=== PATIENT | female | born 1960 | race Caucasian/White ===

== ENCOUNTER → 2022-04-04 13:53 | Outpatient (BNVA) | payer OTHER, SELFPAY | PROVIDERS: PCP Family Medicine; Visit Provider Psychiatry & Neurology Psychiatry | DX: F32.A Depression, unspecified (principal) ==

== ENCOUNTER → 2022-05-23 14:26 | Outpatient (BNVA) | payer OTHER, SELFPAY | PROVIDERS: PCP Family Medicine; Visit Provider Psychiatry & Neurology Psychiatry | DX: Z13.89 Encounter for screening for other disorder (principal) ==

== ENCOUNTER → 2022-07-25 14:05 | Outpatient (BNVA) | payer OTHER, SELFPAY | PROVIDERS: PCP Family Medicine; Visit Provider Psychiatry & Neurology Psychiatry ==

== ENCOUNTER → 2022-08-15 11:42 | Outpatient (BNVA) | payer OTHER, SELFPAY | PROVIDERS: PCP Family Medicine; Visit Provider Psychiatry & Neurology Psychiatry ==

== ENCOUNTER 2022-10-17 11:04 | Outpatient (AMB) | payer OTHER, SELFPAY ==
--- NOTE | 2022-10-17 11:16 | A.OFFPSYCH_ITS ---
Intake Intake Visit Reasons: depression Allergies levofloxacin [From Levaquin] Allergy (Verified 05/23/22 14:48) Rash Medication List - Last Reconciled 10/17/22 by Brandin Chanel MD albuterol sulfate 2.5 mg inhalation Q6H PRN bupropion HCl 150 mg PO DAILY clonazepam 0.5 mg PO TID PRN guanfacine ER 2 mg PO DAILY lamotrigine 200 mg PO BID levothyroxine 100 mcg PO DAILY montelukast 10 mg PO DAILY olanzapine 2.5 mg PO DAILY PRN pantoprazole 40 mg PO DAILY HPI- Psychiatric Chief Complaint: depression HPI Narrative: Pt has been doing somewhat better less depressed less anxious working with Darwin Watt phd will be going on trip to [place] with her using klonapin 0.5 am Lamictal 200 mg twice a day Wellbutrin 150 mg daily olanzapine 2.5 mg daily p.r.n. which she has only need to use once or twice since her last visit she has only been taking the 0.5 mg of Klonopin in the morning. 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 She has been managing better regarding these feelings no significant manic or depressive episode noted by the patient currently. Guanfacine extended-release 2 mg daily in the morning has also been quite helpful in managing anxiety and reactivity Past Psychiatric History: History of agitated depression cycling mood disorder tends to do worse in the spring was at the [facility] in the past was in counseling with Dr. Darwin Watt for many years clinical psychologist Mental Status Exam Mental Status Exam Narrative: Mental Status Exam Narrative: Appearance: Casually dressed Behavior: Cooperative appropriate psychomotor: Within normal limits Speech: Normal volume and prosody Thought proccess logical and goal-directed Thought content: Future oriented has some degree of anxiety rumination regarding her 's upcoming trip and psychiatric issues with her grandson Mood: Some anxiety mood described as okay Affect: Appropriate to mood full affect SI:denies HI:denies VH/AH:none Delusions: None Insight/judgment: Good insight and judgment better perspective Memory/cog: Intact Assessment and Plan Assessment & Plan (1) Generalized anxiety disorder: Status: Acute Code(s): F41.1 - Generalized anxiety disorder (2) Bipolar II disorder: Status: Acute Code(s): F31.81 - Bipolar II disorder (3) ADHD: Status: Acute Code(s): F90.9 - Attention-deficit hyperactivity disorder, unspecified type Plan Patient has been much more stable has better coping mechanisms and strategies in perspective in dealing with issues related to the gradually deteriorating physical condition of her is dealing with Parkinson's. She is going on a trip to [place] with family and her has some appropriate anxiety regarding this. She is working regularly with Dr. Darwin Watt clinical psychologist and this has been quite helpful She has continued to be sober guanfacine has been quite helpful Wellbutrin has been decreased to 150 mg secondary to agitation and anxiety this was done previously Medications: Refilled bupropion HCl 150 mg PO DAILY 30 tabs 2RF guanfacine ER 2 mg PO DAILY 30 tabs 2RF lamotrigine 200 mg PO BID 60 tabs 2RF Discontinued montelukast Discontinued Reason: Patient no longer taking 10 mg PO DAILY Counseling and coordination of Care Pt. Self Management counseling: Breathing and General coping skills Details-Self Mgmt counseling: Issues related to self management and around condition of her and upcoming trip to [place] which will also be with other family Medication management counseling: Effectiveness, Side effects and Dosing range Diagnosis and Prognosis Counseling: Impact of diagnosis on life functions and Adequacy of current interventions Details: I spent [38] minutes reviewing the record, seeing the patient and documenting in the medical record. Counseling provided to the patient/caregiver as outlined below. Addressed patient/caregiver concerns regarding current medication regime including effective adherence. Addressed patient/caregiver concerns regarding diagnosis and prognosis including accuracy of diagnosis, prognosis over time, impact of diagnosis. Addressed patient/caregiver concerns regarding impact of recent stressors. [facility] Medical History (Updated 05/23/22 @ 15:07 by Brandin Chanel MD) ADHD Asthma Bipolar II disorder Generalized anxiety disorder Hypothyroid Social History: Family history of psychosis ADD The patient is has 2 children her daughter has ADHD as does her grandson patient did work in [email or web address] for many years at a long term is retired as is her he has developed Parkinson's over the past couple years has become much more dependent on her patient has a history of chronic anxiety Patient lives with her she enjoys raising dogs Substance History: History of alcohol abuse Trauma History: Has worked with [employer] patient is in a residence times many years Coding Level of Care Code Est Pt Level 3 (72728) Therapy 30m w/E&M (78442) Diagnoses Generalized anxiety disorder F41.1 Bipolar II disorder F31.81 ADHD F90.9
== END 2022-10-17 15:46 | disposition home or self-care (01) ==
LOC: HO.HOP 11:04
PROVIDERS: PCP Family Medicine; Visit Provider Psychiatry & Neurology Psychiatry
DX: F41.1 Generalized anxiety disorder (principal); F31.81 Bipolar II disorder; F90.9 Attention-deficit hyperactivity disorder, unspecified type
CPT/HCPCS: 90833; 99213

== ENCOUNTER → 2022-10-17 11:04 | Outpatient (BNVA) | payer OTHER, SELFPAY | PROVIDERS: PCP Family Medicine; Visit Provider Psychiatry & Neurology Psychiatry | DX: F90.9 Attention-deficit hyperactivity disorder, unspecified type (principal); F41.1 Generalized anxiety disorder; F31.81 Bipolar II disorder | CPT/HCPCS: 90833; 99212 ==

== ENCOUNTER 2023-02-03 11:21 | Outpatient (AMB) | payer OTHER, SELFPAY ==
--- NOTE | 2023-02-03 12:46 | A.OFFPSYCH_ITS ---
Intake Intake Visit Reasons: Depression Allergies levofloxacin [From Levaquin] Allergy (Verified 05/23/22 14:48) Rash Medication List - Last Reconciled 02/03/23 by Brandin Chanel MD albuterol sulfate 2.5 mg inhalation Q6H PRN bupropion HCl 150 mg PO DAILY clonazepam 0.5 mg PO TID PRN guanfacine ER 3 mg PO DAILY lamotrigine 200 mg PO BID levothyroxine 100 mcg PO DAILY olanzapine 2.5 mg PO DAILY PRN pantoprazole 40 mg PO DAILY HPI- Psychiatric Chief Complaint: Depression HPI Narrative: Patient when on [place] trip with her things generally went okay continues to have periods of marked anxiety particularly around her who often reminds her disabled people she used to work with periods of dysphoria severe anxiety she continues to work with Dr. Darwin Watt she remains sober Past Psychiatric History: History of agitated depression cycling mood disorder tends to do worse in the spring was at the [facility] in the past was in counseling with Dr. Darwin Watt for many years clinical psychologist Mental Status Exam Mental Status Exam Narrative: Mental Status Exam Narrative: Appearance: Casually dressed Behavior: Cooperative appropriate psychomotor: Within normal limits Speech: Normal volume and prosody Thought proccess logical and goal-directed Thought content: Future oriented has some degree of anxiety rumination regarding her 's upcoming trip and psychiatric issues with her grandson Mood: Some anxiety mood described as okay Affect: Appropriate to mood full affect SI:denies HI:denies VH/AH:none Delusions: None Insight/judgment: Good insight and judgment better perspective Memory/cog: Intact Assessment and Plan Assessment & Plan (1) ADHD: Status: Acute Code(s): F90.9 - Attention-deficit hyperactivity disorder, unspecified type (2) Generalized anxiety disorder: Status: Acute Code(s): F41.1 - Generalized anxiety disorder (3) Bipolar II disorder: Status: Acute Code(s): F31.81 - Bipolar II disorder Plan Given patient's severe anxiety increase guanfacine to 3 mg daily encourage daily walks yoga relaxation stress management meditation Medications: New guanfacine ER 3 mg PO DAILY 30 tabs 2RF Discontinued guanfacine ER Discontinued Reason: Doctor's Order 2 mg PO DAILY 30 tabs 2RF Counseling and coordination of Care Pt. Self Management counseling: Breathing, Exercise and Cognitive restructuring Diagnosis and Prognosis Counseling: Problematic behaviors secondary to diagnosis and Adequacy of current interventions Details: I spent [38] minutes reviewing the record, seeing the patient and documenting in the medical record. Counseling provided to the patient/caregiver as outlined below. Addressed patient/caregiver concerns regarding current medication regime including effective adherence. Addressed patient/caregiver concerns regarding diagnosis and prognosis including accuracy of diagnosis, prognosis over time, impact of diagnosis. Addressed patient/caregiver concerns regarding impact of recent stressors. 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
== END 2023-02-03 12:28 | disposition home or self-care (01) ==
LOC: HO.HOP 11:21
PROVIDERS: PCP Family Medicine; Visit Provider Psychiatry & Neurology Psychiatry
DX: F90.9 Attention-deficit hyperactivity disorder, unspecified type (principal); F41.1 Generalized anxiety disorder; F31.81 Bipolar II disorder
CPT/HCPCS: 90833; 99213

== ENCOUNTER → 2023-02-03 11:21 | Outpatient (BNVA) | payer OTHER, SELFPAY | PROVIDERS: PCP Family Medicine; Visit Provider Psychiatry & Neurology Psychiatry | DX: F41.1 Generalized anxiety disorder (principal); F31.81 Bipolar II disorder; F90.9 Attention-deficit hyperactivity disorder, unspecified type | CPT/HCPCS: 90833; 99212 ==

== ENCOUNTER 2023-05-09 11:30 | Outpatient (AMB) | payer OTHER, SELFPAY ==
--- NOTE | 2023-05-09 11:40 | MHC.OFFVISPS ---
Intake Intake Visit Reasons: depression Allergies levofloxacin [From Levaquin] Allergy (Verified 05/23/22 14:48) Rash HPI- Psychiatric Chief Complaint: depression HPI Narrative: Patient seen psychiatric follow-up. Patient has been anxious ruminating dysphoric overwhelmed with the situation at home dealing with her and recently with her grandson who appears to have schizophrenia when off of his medication had become threatening. He is now hospitalized patient feels guanfacine generally helpful she is aware of blood pressure risk of lowering and dizziness need to get up slowly out of a chair Past Psychiatric History: History of agitated depression cycling mood disorder tends to do worse in the spring was at the [facility] in the past was in counseling with Dr. Darwin Watt for many years clinical psychologist Assessment and Plan Assessment & Plan (1) Generalized anxiety disorder: Status: Acute Code(s): F41.1 - Generalized anxiety disorder (2) Bipolar II disorder: Status: Acute Code(s): F31.81 - Bipolar II disorder (3) ADHD: Status: Acute Code(s): F90.9 - Attention-deficit hyperactivity disorder, unspecified type Plan Wellbutrin has been lowered over times 150 mg clonazepam secondary to severe panic and anxiety 0.5 t.i.d. lamotrigine 200 mg b.i.d.. Consider discontinuation Wellbutrin. Consider mirtazapine patient worried about weight gain has been on olanzapine past suggest consideration Myrna Galarza patient did wish at this time.sees dr watt in [place] encourage daily walks exercise Medications: Refilled clonazepam 0.5 mg PO TID PRN 90 tabs 0RF anxiety bupropion HCl 150 mg PO DAILY 30 tabs 2RF lamotrigine 200 mg PO BID 60 tabs 2RF Counseling and coordination of Care Pt. Self Management counseling: Breathing, Exercise and Greif counseling Medication management counseling: Effectiveness and Side effects Diagnosis and Prognosis Counseling: Impact of diagnosis on life functions and Adequacy of current interventions Details: I spent [30] minutes reviewing the record, seeing the patient and documenting in the medical record. Counseling provided to the patient/caregiver as outlined below. Addressed patient/caregiver concerns regarding current medication regime including effective adherence. Addressed patient/caregiver concerns regarding diagnosis and prognosis including accuracy of diagnosis, prognosis over time, impact of diagnosis. Addressed patient/caregiver concerns regarding impact of recent stressors. 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
== END 2023-05-09 11:54 | disposition home or self-care (01) ==
LOC: HO.HOP 11:30
PROVIDERS: PCP Family Medicine; Visit Provider Psychiatry & Neurology Psychiatry
DX: F41.1 Generalized anxiety disorder (principal); F31.81 Bipolar II disorder; F90.9 Attention-deficit hyperactivity disorder, unspecified type
CPT/HCPCS: 99214

== ENCOUNTER → 2023-05-09 11:30 | Outpatient (BNVA) | payer OTHER, SELFPAY | PROVIDERS: PCP Family Medicine; Visit Provider Psychiatry & Neurology Psychiatry | DX: F41.1 Generalized anxiety disorder (principal); F31.81 Bipolar II disorder; F90.9 Attention-deficit hyperactivity disorder, unspecified type | CPT/HCPCS: 99212 ==

== ENCOUNTER 2023-09-11 11:14 | Outpatient (AMB) | payer OTHER, SELFPAY ==
--- NOTE | 2023-09-11 11:15 | A.OFFPSYCH_ITS ---
Intake Intake Visit Reasons: depression Allergies levofloxacin [From Levaquin] Allergy (Verified 05/23/22 14:48) Rash Medication List - Last Reconciled 09/11/23 by Brandin Chanel MD albuterol sulfate 2.5 mg inhalation Q6H PRN clonazepam 0.5 mg PO TID PRN guanfacine ER 2 mg PO DAILY lamotrigine 200 mg PO BID levothyroxine 100 mcg PO DAILY olanzapine 2.5 mg PO DAILY PRN pantoprazole 40 mg PO DAILY HPI- Psychiatric Chief Complaint: depression HPI Narrative: Patient has difficulty with chronic anxiety and dysphoria in relationship to her and chronic stress. There has been some improvement her son and [id number] have moved in essentially to support the patient taking care of her who has Parkinson's disease. Patient continues on Lamictal which has been quite helpful clonazepam no more than 1 mg daily which continues to be helpful generally 0.5 mg a day guanfacine which has been quite helpful for anxiety reactivity Past Psychiatric History: History of agitated depression cycling mood disorder tends to do worse in the spring was at the [facility] in the past was in counseling with Dr. Darwin Watt for many years clinical psychologist Assessment and Plan Assessment & Plan (1) Generalized anxiety disorder: Status: Acute Code(s): F41.1 - Generalized anxiety disorder (2) Bipolar II disorder: Status: Acute Code(s): F31.81 - Bipolar II disorder Plan Continue guanfacine Wellbutrin 150 discontinued may contribute to anxiety reactivity guanfacine lowered to 2 mg daily secondary to occasional lightheadedness blood pressure unremarkable on exam Medications: New guanfacine ER 2 mg PO DAILY 90 tabs 1RF Discontinued guanfacine ER Discontinued Reason: Duplicate 3 mg PO DAILY 30 tabs 2RF bupropion HCl SR Discontinued Reason: Doctor's Order 150 mg PO DAILY 30 tabs 2RF Counseling and coordination of Care Details: I spent [] minutes reviewing the record, seeing the patient and documenting in the medical record. Counseling provided to the patient/caregiver as outlined below. Addressed patient/caregiver concerns regarding current medication regime including effective adherence. Addressed patient/caregiver concerns regarding diagnosis and prognosis including accuracy of diagnosis, prognosis over time, impact of diagnosis. Addressed patient/caregiver concerns regarding impact of recent stressors. [facility] Medical History (Updated 05/23/22 @ 15:07 by Brandin Chanel MD) Asthma ADHD Generalized anxiety disorder Bipolar II disorder Hypothyroid Social History: Family history of psychosis ADD The patient is has 2 children her daughter has ADHD as does her grandson patient did work in [employer] for many years at a retirement is retired as is her he has developed Parkinson's over the past couple years has become much more dependent on her patient has a history of chronic anxiety Patient lives with her she enjoys raising dogs Substance History: History of alcohol abuse Trauma History: Has worked with [employer] patient is in a residence times many years Coding Level of Care Code Est Pt Level 4 (93331) Diagnoses Generalized anxiety disorder F41.1 Bipolar II disorder F31.81
== END 2023-09-11 11:22 | disposition home or self-care (01) ==
LOC: HO.HOP 11:14
PROVIDERS: PCP Family Medicine; Visit Provider Psychiatry & Neurology Psychiatry
DX: F41.1 Generalized anxiety disorder (principal); F31.81 Bipolar II disorder
CPT/HCPCS: 99214

== ENCOUNTER → 2023-09-11 11:14 | Outpatient (BNVA) | payer OTHER, SELFPAY | PROVIDERS: PCP Family Medicine; Visit Provider Psychiatry & Neurology Psychiatry | DX: F41.1 Generalized anxiety disorder (principal); F31.81 Bipolar II disorder | CPT/HCPCS: 99212 ==

== ENCOUNTER 2023-11-27 10:57 | Outpatient (AMB) | payer OTHER, SELFPAY ==
--- NOTE | 2023-11-27 11:33 | A.OFFPSYCH_ITS ---
Intake Intake Visit Reasons: depression Allergies levofloxacin [From Levaquin] Allergy (Verified 05/23/22 14:48) Rash HPI- Psychiatric Chief Complaint: depression HPI Narrative: Pt seen in f/u has been stressed overwhelmed had to euthanize dog recently which inc depression has been isolating . HER LONGSTANDING THERAPIST DR. WATT WILL BE RETIRING. No self-harming thoughts but feels overwhelmed with multiple issues with her family grandson a chronic psychotic disorder who has been refusing medication her has Parkinson's and has been increasingly disabled. Patient is on guanfacine Lamictal which generally has been helpful has not used olanzapine p.r.n. patient does tend to do worse in the spring. Her son his have moved in to help the patient take care of her this has been helpful. She has not been doing the things she knows she needs to be doing to help stabilize such as daily walk making sure she has time for herself besides isolating Past Psychiatric History: History of agitated depression cycling mood disorder tends to do worse in the spring was at the [facility] in the past was in counseling with Dr. Darwin Watt for many years clinical psychologist Mental Status Exam Mental Status Exam Narrative: Mental Status Exam Narrative: Appearance: Casually dressed Behavior: Cooperative appropriate psychomotor: Within normal limits Speech: Normal volume and prosody Thought proccess logical and goal-directed Thought content: Lot of negative thinking rumination self despair judgment that she is not doing the things she knows she needs to do. Quite worried about her grandson and what he might do Mood: Depressed anxious Affect: Appropriate to mood full affect SI:denies HI:denies VH/AH:none Delusions: None Insight/judgment: Some impaired judgment regarding self-care overwhelmed with multiple issues difficulty setting boundaries urge ongoing counseling yoga meditation excised Memory/cog: Intact Assessment and Plan Assessment & Plan (1) Bipolar II disorder: Status: Acute Code(s): F31.81 - Bipolar II disorder (2) ADHD: Status: Acute Code(s): F90.9 - Attention-deficit hyperactivity disorder, unspecified type (3) Generalized anxiety disorder: Status: Acute Code(s): F41.1 - Generalized anxiety disorder Plan Had recommended l methyl folate 7.5 mg up to 15 mg monitor for any increased anxiety continue lamotrigine guanfacine consider Vraylar Latuda if continued symptomatic strongly urged regular exercise meditation boundary setting with family Medications: Refilled lamotrigine 200 mg PO BID 180 tabs 1RF guanfacine ER 2 mg PO DAILY 90 tabs 1RF Counseling and coordination of Care Pt. Self Management counseling: Breathing Details-Self Mgmt counseling: Issues related to management of multiple family stressors Medication management counseling: Effectiveness, Side effects and Dosing range Diagnosis and Prognosis Counseling: Adequacy of current interventions Details: I spent [40] minutes reviewing the record, seeing the patient and documenting in the medical record. Counseling provided to the patient/caregiver as outlined below. Addressed patient/caregiver concerns regarding current medication regime including effective adherence. Addressed patient/caregiver concerns regarding diagnosis and prognosis including accuracy of diagnosis, prognosis over time, impact of diagnosis. Addressed patient/caregiver concerns regarding impact of recent stressors. 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
== END 2023-11-27 11:41 | disposition home or self-care (01) ==
LOC: HO.HOP 10:57
PROVIDERS: PCP Family Medicine; Visit Provider Psychiatry & Neurology Psychiatry
DX: F31.81 Bipolar II disorder (principal); F90.9 Attention-deficit hyperactivity disorder, unspecified type; F41.1 Generalized anxiety disorder
CPT/HCPCS: 90833; 99213

== ENCOUNTER → 2023-11-27 10:57 | Outpatient (BNVA) | payer OTHER, SELFPAY | PROVIDERS: PCP Family Medicine; Visit Provider Psychiatry & Neurology Psychiatry ==

== ENCOUNTER 2024-04-19 11:09 | Outpatient (AMB) | payer OTHER, SELFPAY ==
--- NOTE | 2024-04-19 11:52 | A.OFFPSYCH_ITS ---
Intake Intake Visit Reasons: depression Allergies levofloxacin [From Levaquin] Allergy (Verified 05/23/22 14:48) Rash Medication List - Last Reconciled 04/19/24 by Brandin Chanel MD albuterol sulfate 2.5 mg inhalation Q6H PRN clonazepam 0.5 mg PO TID PRN guanfacine ER 2 mg PO DAILY lamotrigine 200 mg PO BID levothyroxine 100 mcg PO DAILY olanzapine 2.5 mg PO DAILY PRN pantoprazole 40 mg PO DAILY HPI- Psychiatric Chief Complaint: depression HPI Narrative: Pt seen in psych f/u has been less anxious since son has moved in to some degree. Trying to figure out how to get along with son and d in law . Son has been helpful taking care of her h who has parkinsons. Lamictal guanfacine has been helpful . Has been having panic attacks at times and during exercise. There is a chronic low-level apathy and dysphoria some of it related to a lack connection with her at this point who has been disabled by Parkinson's disease. Has limited outside interests. Was seeing Dr. Watt who has now retired in psychotherapy Past Psychiatric History: History of agitated depression cycling mood disorder tends to do worse in the spring was at the [facility] in the past was in counseling with Dr. Darwin Watt for many years clinical psychologist Mental Status Exam Mental Status Exam Narrative: Mental Status Exam Narrative: Appearance: Casually dressed Behavior: Cooperative appropriate psychomotor: Within normal limits Speech: Normal volume and prosody Thought proccess logical and goal-directed Thought content: Focuses on family life issues related to herself her and grandson. Does not wish more aggressive treatment Mood: Depressed anxious Affect: Appropriate to mood full affect SI:denies HI:denies VH/AH:none Delusions: None Insight/judgment: Some impaired judgment regarding self-care which is a chronic issue for the patient was able to take in information Memory/cog: Intact Assessment and Plan Assessment & Plan (1) Bipolar II disorder: Status: Acute Code(s): F31.81 - Bipolar II disorder (2) Generalized anxiety disorder: Status: Acute Code(s): F41.1 - Generalized anxiety disorder (3) ADHD: Status: Acute Code(s): F90.9 - Attention-deficit hyperactivity disorder, unspecified type Plan urged pt to do self care 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 Has been having some inc panic attacks.L methyl folate 7.5 mg guanfacine lamictal can use klonapin for panic. If panic increase his can transiently take 0.5 b.i.d. for a few days before cutting back down to 0.5 mg daily in morning. Patient does not wish to take olanzapine which has been somewhat helpful in the past Medications: Changed From clonazepam 0.5 mg PO TID PRN 90 tabs 1RF anxiety To clonazepam 0.5 mg PO BID PRN 130 tabs 1RF anxiety 3 months Discontinued olanzapine Discontinued Reason: Patient Completed Course 2.5 mg PO DAILY PRN 30 tabs 2RF anxiety Counseling and coordination of Care Details: I spent [] minutes reviewing the record, seeing the patient and documenting in the medical record. Counseling provided to the patient/caregiver as outlined below. Addressed patient/caregiver concerns regarding current medication regime including effective adherence. Addressed patient/caregiver concerns regarding diagnosis and prognosis including accuracy of diagnosis, prognosis over time, impact of diagnosis. Addressed patient/caregiver concerns regarding impact of recent stressors. [facility] Medical History (Updated 05/23/22 @ 15:07 by Brandin Chanel MD) Asthma ADHD Generalized anxiety disorder Bipolar II disorder Hypothyroid Social History: Family history of psychosis ADD The patient is has 2 children her daughter has ADHD as does her grandson patient did work in [employer] for many years at a [employer] is retired as is her he has developed Parkinson's over the past couple years has become much more dependent on her patient has a history of chronic anxiety Patient lives with her she enjoys raising dogs Substance History: History of alcohol abuse Trauma History: Has worked with [employer] patient is in a residence times many years Coding Level of Care Code Est Pt Level 4 (25790) Diagnoses Bipolar II disorder F31.81 Generalized anxiety disorder F41.1 ADHD F90.9
--- OUTSIDE RECORDS SUMMARY | 2024-04-19 16:04 | XMS_ITS | Data Portability ---
Author Organization [facility], [facility] Address [address] [place] [address] Care Team Providers Care Government Program Manager Name Role Phone MACHO WHEELER Indoor Landscaper/Gardener Unavailable KRUNAL QUINTANA Indoor Landscaper/Gardener Unavailable Assessment Encounter Date Assessment Date Assessment LastModified by Organization Details LastModified Time 12/01/2013 12/01/2013 Pt. is doing well. She reports her knee is less painful and the fatigue is also getting less. slooze Not available 12/01/2013 09:56:01 12/06/2013 12/06/2013 Pt. continues to improve.? ? ? Her strength is better. Her knee fatigues quickly. slooze Not available 12/06/2013 08:22:30 12/09/2013 12/09/2013 Right knee is doing well. She continues to feel fatigue in the knee if she is up on it all day. slooze Not available 12/10/2013 06:25:37 12/21/2013 12/21/2013 Pt. is doing well and will be discharged today. slooze Not available 12/22/2013 06:20:25 Plan of Treatment Reminders Order Date Submit Date Provider Last Modified By Organization Details Last Modified Time Details Appointments None record ed. Lab None record ed. Referral None record ed. Procedures None record ed. Surgeries None record ed. Imaging None record ed. Medication Orders None record ed. Patient TargetsNo targets recorded. Patient InstructionsNo instructions recorded. Reason for Referral None Reported. Results Created Date Observation Date Name Description Value Unit Range Abnormal Flag Note LastModifiedBy Organization Detail LastModifiedTime 11/18/19 14 11/12/2013 imagi ng/di agnos tic resul t No observ ation record ed. BARCODE Not Available 2013 10:56:40 Result Notes None recorded. Problems Name Problem SNOMED Code Status Onset Date Resolution Date Notes Provider Name and Address Organization Details Recorded Time Carpal tunnel syndrome 10002680 Active 2004 Not Available [facility] 3 03:12:36 Traumatic injury 293980622 Completed 02/10/2013 Not Available [facility] 3 02:03:19 Problem Notes None recorded. Procedures Surgical History Date Name Laterality Status Provider Name and Address Organization Details Recorded Time 8 Carla - Colonoscopy completed Nilesh Aguirre MD [address] [place], [address], [facility] 01/21/2018 11:04:38 0 Treatment and Advice completed Flory Reyes PT [address] [place], [address], [facility] 07/04/2009 12:12:47 Imaging Results Imaging Date Name Status LastModified by Organiz ation Details LastModified Time 11/12/2013 imaging/diag nostic result completed BARCODE Information not available 11/17/2013 10:56:40 Procedure Notes None recorded. Medical Equipment None Reported. Allergies Allergen ID Allergen Name Allergen Category Reaction Reaction Severity Criticality Documentation Date Start Date Code Code System Note Provider Name and Address Organization Details Recorded Time 20780427 Paxil medicatio n Not available Not available Not available 01/21/2018 21560 8 RxNorm Alba Powell RN [facility], [facility] 8 09:27:54 [id number] Neurontin medicatio n Not available Not available Not available 01/21/2018 [address] [facility], [facility] 8 09:28:02 [id number] Levaquin medicatio n Not available Not available Not available 01/21/2018 09951 2 DESEAN Jerome, [facility] 8 10:10:00 Medications Name Sig Start Date Stop Date Status Note LastModified by Organization Details LastModified Time Breo Ellipta 200 mcg-25 mcg/dose powder for inhalation INHALE 1 PUFF ONCE A DAY active Not Available Not Available No t Available Vitals None Recorded Social History None recorded. Functional Status None recorded. Mental Status None recorded. Family History Nothing Reported. Medical History No medical history recorded. Gynecological HistoryNo gynecological history recorded. Obstetrics History GPAL:G 0 P 0 0 0 0 Past Encounters Encounter ID Performer Location Encounter Start Date Encounter Closed Date Diagnosis/Indication Diagnosis SNOMED-CT Code Diagnosis ICD10 Code Diagnosis Note [id number] Physical Therapy, [facility] [place] [address] 06/04/2004 11:36:42 06/04/2004 13:24:05 [id number] Physical Therapy, [facility] [place] [id number] 06/28/2009 11:14:12 06/29/2009 11:26:07 [id number] Radiology , [facility] [place] [address] 06/28/2009 12:19:38 06/29/2009 09:30:22 [id number] Physical Therapy, [facility] DEIRDRE Burris02[address] 1 07/04/2009 08:27:52 07/05/2009 11:12:19 [id number] Physical Therapy, [facility] DEIRDRE Burris02[address] 1 07/07/2009 08:28:12 07/10/2009 14:55:10 [id number] Physical Therapy, [facility] [place] [id number] 07/12/2009 09:28:58 07/13/2009 12:17:55 [id number] Physical Therapy, [facility] [place] [place] [address] 07/19/2009 10:22:07 07/20/2009 11:10:13 [id number] Physical Therapy, [facility] [place] [address] 07/26/2009 10:43:29 07/27/2009 12:35:56 [id number] Leslie Coker Physical Therapy, [facility] [place] [address] 12/11/2011 16:33:41 12/12/2011 08:57:25 [id number] eLslie Coker Physical Therapy, [facility] [place] [address] 12/13/2011 08:00:06 12/16/2011 09:31:23 [id number] Leslie Coker Physical Therapy, [address] [place] [address] 12/17/2011 15:54:23 12/18/2011 10:37:36 [id number] Leslie Coker Physical Therapy, [facility] [place] [address] 12/19/2011 15:53:28 12/20/2011 10:07:53 [id number] Leslie Coker Physical Therapy, [facility] [place] [address] 03/03/2012 16:47:01 03/04/2012 11:42:58 [id number] Leslie May Physical Therapy, [facility] [place] [address] 03/10/2012 14:21:47 03/11/2012 10:53:30 [id number] Olivia Rice Physical Therapy, [facility] [place] [id number] 02/04/2013 07:47:01 02/05/2013 09:12:45 Knee pain [id number] Olivia Kvng Physical Therapy, [facility] [place] [address] 02/12/2013 07:52:18 02/15/2013 11:25:06 Knee pain [id number] [id number] Olivia Calderon Physical Therapy, [facility] [place] [address] 02/16/2013 13:23:06 02/17/2013 08:21:50 Knee pain 80640136 [id number] Olivia Kvng Physical Therapy, [facility] [place] [address] 02/22/2013 08:23:54 02/23/2013 10:13:01 Knee pain 44112701 [id number] Olivia Kvng Physical Therapy, [facility] [place] [address] 02/24/2013 08:23:39 02/25/2013 12:22:01 Knee pain 24309913 [id number] Olivia Calderon Physical Therapy, [facility] [place] [address] 03/01/2013 07:53:50 03/02/2013 12:53:37 Knee pain 63071230 [id number] Olivia Calderon Physical Therapy, [facility] [place] [address] 03/04/2013 10:26:40 03/05/2013 10:20:02 Knee pain 95090786 [id number] Olivia Calderon Physical Therapy, [facility] [place] [address] 03/10/2013 14:14:03 03/11/2013 11:07:51 Knee pain [id number] [id number] Ole Wilson Physical Therapy, [facility] [place] [address] 03/12/2013 07:59:29 03/15/2013 09:52:58 Knee pain [id number] [id number] Vaibhav Buitrago Physical Therapy, [facility] [place] [address] 11/15/2013 08:47:00 11/16/2013 10:16:27 Knee pain 74668015 [id number] Vaibhav Buitrago Physical Therapy, [facility] [place] [address] 11/19/2013 09:19:13 11/23/2013 10:04:35 Knee pain 64560291 [id number] Vaibhav Buitrago Physical Therapy, [facility] [place] [address] 11/24/2013 16:31:32 11/25/2013 10:58:46 Knee pain 54323922 [id number] Vaibhav Buitrago Physical Therapy, [facility] [place] [address] 11/26/2013 09:21:40 11/29/2013 10:26:22 Knee pain 82229641 [id number] Vaibhav Buitrago Physical Therapy, [facility] [place] [address] 11/29/2013 08:49:17 11/30/2013 13:35:18 Knee pain 42852733 [id number] Vaibhav Buitrago Physical Therapy, [facility] [place] [address] 12/01/2013 09:24:10 12/01/2013 16:49:50 Knee pain 95199136 [id number] Vaibhav Buitrago Physical Therapy, [facility] [place] [address] 12/06/2013 07:52:20 12/06/2013 16:41:57 Knee pain 71340503 [id number] Vaibhav Buitrago Physical Therapy, [facility] [place] [address] 12/09/2013 15:21:47 12/10/2013 08:48:59 Knee pain 52708920 [id number] Vaibhav Buitrago Physical Therapy, [facility] [place] [address] 12/21/2013 15:18:50 12/22/2013 09:57:49 Knee pain [id number] [id number] Adriana Cantrell RN [facility], [address] [address] 01/21/2018 09:10:13 01/21/2018 14:05:03 [id number] Anat Goodrich [employer] electrical engineering draftsperson , [address] [address] 03/07/2023 12:21:17 03/10/2023 11:05:02 [id number] Kellie Rodriguez RN Endoscopy , [address] [address] 09/26/2023 09:43:36 09/30/2023 08:57:15 Health Concerns Section Related Observation LastModified by Organization Detai ls LastModified Time None Recorded Concern Status LastModified by Organization Details LastModified Time None Recorded Advance Directives Directive None Recorded Payers Encounter Date Sequence Insurance Name Policy Number Policy Raya Covered Member ID Raya Member ID Guarantor Name 12/01/2013 1 [facility] INDEMNITY PLAN - UNICARE [id number] Liliana Aiken [id number] Liliana Jones Attila 12/06/2013 [employer] [facility] [facility] Liliana Jones Attila 12/09/2013 [employer] [place] [facility] [employer] Liliana Jones Attila 12/21/2013 [employer] [facility] [employer] Liliana Jones Attila 01/21/2018 1 [facility] INDEMNITY PLAN - [employer] [id number] Liliana Jones Attila [id number] Liliana Jones Attila OBGyn Episode No OBEpisode recorded.
--- OUTSIDE RECORDS SUMMARY | 2024-04-19 16:04 | XMS_ITS | Data Portability ---
Author Organization [facility], Physical Therapy, [facility] Address [address] [place] [address] Care Team Providers Care Quiller Tender Name Role Phone MACHO WHEELER Antique Refinisher Unavailable KRUNAL QUINTANA Antique Refinisher Unavailable Assessment Encounter Date Assessment Date Assessment LastModified by Organization Details LastModified Time 12/01/2013 12/01/2013 Pt. is doing well. She reports her knee is less painful and the fatigue is also getting less. slooze Not available 12/01/2013 09:56:01 12/06/2013 12/06/2013 Pt. continues to improve.?? Her strength is better. Her knee fatigues [...] Available 2013 10:56:40 Result Notes None recorded. Procedures Surgical History Date Name Laterality Status Provider Name and Address Organization Details Recorded Time 4 Carla - EGD completed Nilesh Aguirre MD [address] [place] [address], [address], [facility] 09/26/2023 11:30:11 3 Carla - Colonoscopy completed Nilesh Aguirre MD [address] [place] [address], [address], [facility] 03/07/2023 13:44:25 Imaging Results Imaging Date Name Status LastModified by Organiz ation Details LastModified Time 11/12/2013 imaging/diag nostic result completed BARCODE Information not available 11/17/2013 10:56:40 Procedure Notes None recorded. Medical Equipment None Reported. Allergies Allergen ID Allergen Name Allergen Category Reaction Reaction Severity Criticality Documentation Date Start Date Code Code System Note Provider Name and Address Organization Details Recorded Time 599955 Paxil medicatio n other Not available Not available 03/05/2023 93452 8 RxNorm [facility]ici [facility] 16:06:37 285021 Prozac medicatio n other Not available Not available 03/05/2023 51395 RxNorm suici [facility]ra [facility]ur[facility] 16:07:06 993492 levofloxa alejandro medicatio n other Not available Not available 03/05/2023 06010 RxNorm red itchy site of injec [facility]ion [facility] 16:07:58 295561 Neurontin medicatio n hallucina tions Not available Not available 03/05/2023 69093 8 [facility] 16:08:29 Medications Name Sig Start Date Stop Date [...] SNOMED-CT Code Diagnosis ICD10 Code Diagnosis Note [id number] Physical Therapy, [facility] [place] [address] 06/04/2004 11:36:42 06/04/2004 13:24:05 [id number] Physical Therapy, [facility] [place] [id number] 06/28/2009 11:14:12 06/29/2009 11:26:07 [id number] Radiology , [facility] [place] [address] 06/28/2009 12:19:38 06/29/2009 09:30:22 [id number] Physical Therapy, [facility] DEIRDRE Burris02[address] 1 07/04/2009 08:27:52 07/05/2009 11:12:19 [id number] Physical Therapy, [address] DEIRDRE [id number] 1 07/07/2009 08:28:12 07/10/2009 14:55:10 [id number] Physical Therapy, [facility] [place] [address] 07/12/2009 09:28:58 07/13/2009 12:17:55 [id number] Physical Therapy, [facility] [place] [place] [address] 07/19/2009 10:22:07 07/20/2009 11:10:13 [id number] Physical Therapy, [address] [place] [address] 07/26/2009 10:43:29 07/27/2009 12:35:56 [id number] Leslie Coker Physical Therapy, [facility] [place] [address] 12/11/2011 16:33:41 12/12/2011 08:57:25 [id number] Leslie Coker Physical Therapy, [facility] [place] [address] 12/13/2011 08:00:06 12/16/2011 09:31:23 [id number] Leslie Coker Physical Therapy, [address] [place] [address] 12/17/2011 15:54:23 12/18/2011 10:37:36 [id number] Leslie Coker Physical Therapy, [facility] [place] [address] 12/19/2011 15:53:28 12/20/2011 10:07:53 [id number] Leslie Coker Physical Therapy, [facility] [place] [address] 03/03/2012 16:47:01 03/04/2012 11:42:58 [id number] Leslie Coker Physical Therapy, [facility] [place] [address] 03/10/2012 14:21:47 03/11/2012 10:53:30 [id number] Olivia Calderon Physical Therapy, [facility] [place] [address] 02/04/2013 07:47:01 02/05/2013 09:12:45 [id number] Olivia Calderon Physical Therapy, [facility] [place] [id number] 02/12/2013 07:52:18 02/15/2013 11:25:06 [id number] Olivia Calderon Physical Therapy, [facility] [place] [address] 02/16/2013 13:23:06 02/17/2013 08:21:50 [id number] Olivia Calderon Physical Therapy, [facility] [place] [address] 02/22/2013 08:23:54 02/23/2013 10:13:01 [id number] Olivia Calderon Physical Therapy, [facility] [place] [address] 02/24/2013 08:23:39 02/25/2013 12:22:01 [id number] Olivia Calderon Physical Therapy, [facility] [place] [address] 03/01/2013 07:53:50 03/02/2013 12:53:37 [id number] Olivia Calderon Physical Therapy, [facility] [place] [id number] 03/04/2013 10:26:40 03/05/2013 10:20:02 [id number] Olivia Calderon Physical Therapy, [facility] [place] [address] 03/10/2013 14:14:03 03/11/2013 11:07:51 [id number] Ole Wilson Physical Therapy, [place] [address] 03/12/2013 07:59:29 03/15/2013 09:52:58 [id number] Vaibhav Buitrago Physical Therapy, [facility] [place] [address] 11/15/2013 08:47:00 11/16/2013 10:16:27 [id number] Vaibhav Buitrago Physical Therapy, [facility] [place] [address] 11/19/2013 09:19:13 11/23/2013 10:04:35 [id number] Vaibhav Buitrago Physical Therapy, [facility] [place] [address] 11/24/2013 16:31:32 11/25/2013 10:58:46 [id number] Vaibhav Buitrago Physical Therapy, [facility] [place] [address] 11/26/2013 09:21:40 11/29/2013 10:26:22 [id number] Vaibhav Buitrago Physical Therapy, [facility] [place] [address] 11/29/2013 08:49:17 11/30/2013 13:35:18 [id number] Vaibhav Buitrago Physical Therapy, [facility] [place] [address] 12/01/2013 09:24:10 12/01/2013 16:49:50 [id number] Vaibhav Buitrago Physical Therapy, [facility] [place] [address] 12/06/2013 07:52:20 12/06/2013 16:41:57 [id number] Vaibhav Buitrago Physical Therapy, [facility] [place] [address] 12/09/2013 15:21:47 12/10/2013 08:48:59 [id number] Vaibhav Buitrago Physical Therapy, [facility] [place] [address] 12/21/2013 15:18:50 12/22/2013 09:57:49 [id number] Adriana Cantrell RN ASP, [facility] [place] [address] 01/21/2018 09:10:13 01/21/2018 14:05:03 [id number] NIKUNJ Holcomb RN Endoscopy , [facility] [place] [address] 03/07/2023 12:21:17 03/10/2023 11:05:02 [id number] Kellie Rodriguez RN Endoscopy , [address] [address] 09/26/2023 09:43:36 09/30/2023 08:57:15 Health Concerns Section Related Observation LastModified by Organization Detai ls LastModified Time None Recorded Concern Status LastModified by Organization Details LastModified Time None Recorded Advance Directives Directive None Recorded Payers Encounter Date Sequence Insurance Name Policy Number Policy Raya Covered Member ID Raya Member ID Guarantor Name 12/01/2013 1 [facility] INDEMNITY PLAN - [employer] [id number] Liliana S Attila [id number] Liliana Aiken 12/06/2013 [facility] [facility] [facility] [employer] Liliana Karen Attila 12/09/2013 [facility] [facility] [employer] Liliana S Attila 12/21/2013 [employer] [employer] [facility] [employer] Liliana S Attila 01/21/2018 1 [facility] INDEMNITY PLAN - [employer] [id number] Liliana Aiken [id number] Liliana Karen Attila OBGyn Episode No OBEpisode recorded.
== END 2024-04-19 12:13 | disposition home or self-care (01) ==
LOC: HO.HOP 11:09
PROVIDERS: PCP Family Medicine; Visit Provider Psychiatry & Neurology Psychiatry
DX: F31.81 Bipolar II disorder (principal); F41.1 Generalized anxiety disorder; F90.9 Attention-deficit hyperactivity disorder, unspecified type
CPT/HCPCS: 99214

== ENCOUNTER → 2024-04-19 11:09 | Outpatient (BNVA) | payer OTHER, SELFPAY | PROVIDERS: PCP Family Medicine; Visit Provider Psychiatry & Neurology Psychiatry | DX: F31.81 Bipolar II disorder (principal); F41.1 Generalized anxiety disorder; F90.9 Attention-deficit hyperactivity disorder, unspecified type | CPT/HCPCS: 99212 ==

== ENCOUNTER 2024-12-07 10:59 | Outpatient (AMB) | payer OTHER, SELFPAY ==
--- NOTE | 2024-12-07 11:50 | MHC.OFFVISPS ---
Intake Intake Visit Reasons: depression Allergies levofloxacin (From [facility]) Allergy (Verified 05/23/22 14:48) Rash Medication List - Last Reconciled 12/07/24 by Brandin Chanel MD albuterol sulfate 2.5 mg inhalation Q6H PRN clonazepam 0.5 mg PO BID PRN 3 months guanfacine ER 2 mg PO DAILY lamotrigine 200 mg PO BID levothyroxine 100 mcg PO DAILY pantoprazole 40 mg PO DAILY spironolactone 25 mg PO DAILY HPI- Psychiatric Chief Complaint: depression HPI Narrative: Patient seen psychiatric follow-up. Patient's mood has been more anxious and stressed she and her son and rlhhhzxk-sw-vak are being forced to move out of the house where they had been living generally run free for a number of years. She does find quite stressful staying with her caring for him watching him deteriorate and has been quite supported by having 1 of her sons living with her to help care for him. There being suddenly forced moved does bring up number of issues the patient has had a very difficult time dealing with her emotions toward her and has not felt connected for an extended period of time . Patient states she remains sober she continues on Lamictal and guanfacine combinations been helpful for anxiety reactivity mood stability. Patient obviously is under great deal of stress with multiple choices Past Psychiatric History: History of agitated depression cycling mood disorder tends to do worse in the spring was at the [facility] in the past was in counseling with Dr. Darwin Watt for many years clinical psychologist Mental Status Exam Mental Status Exam Narrative: Patient casually dressed somewhat disheveled anxious in appearance. Speech somewhat pressured. Thinking generally logical At times overwhelmed and tangential. Mood anxious stressed overwhelmed somewhat labile future oriented no self-harm no psychosis Assessment and Plan Assessment & Plan (1) Bipolar II disorder: Status: Acute Code(s): F31.81 - Bipolar II disorder (2) Generalized anxiety disorder: Status: Acute Code(s): F41.1 - Generalized anxiety disorder (3) ADHD: Status: Acute Code(s): F90.9 - Attention-deficit hyperactivity disorder, unspecified type Plan Continue guanfacine in clonazepam trying to tell patient's sort out different choices. She does have family support feels like she is dealing with the current stress and will sort it out Medications: Refilled guanfacine ER 2 mg PO DAILY 90 tabs 1RF clonazepam 0.5 mg PO BID PRN 130 tabs 1RF anxiety 3 months Counseling and coordination of Care Pt. Self Management counseling: General coping skills Medication management counseling: Effectiveness, Side effects and Dosing range Diagnosis and Prognosis Counseling: Impact of diagnosis on life functions and Adequacy of current interventions Details: I spent [38] minutes reviewing the record, seeing the patient and documenting in the medical record. Counseling provided to the patient/caregiver as outlined below. Addressed patient/caregiver concerns regarding current medication regime including effective adherence. Addressed patient/caregiver concerns regarding diagnosis and prognosis including accuracy of diagnosis, prognosis over time, impact of diagnosis. Addressed patient/caregiver concerns regarding impact of recent stressors. [facility] Medical History (Updated 05/23/22 @ 15:07 by Brandin Chanel MD) Asthma ADHD Generalized anxiety disorder Bipolar II disorder Hypothyroid Social History: Family history of psychosis ADD The patient is has 2 children her daughter has ADHD as does her grandson patient did work in [employer] for many years at a [employer] is retired as is her he has developed Parkinson's over the past couple years has become much more dependent on her patient has a history of chronic anxiety Patient lives with her she enjoys raising dogs Substance History: History of alcohol abuse Trauma History: Has worked with [facility] patient is in a residence times many years Coding Level of Care Code Est Pt Level 3 (85501) Therapy 30m w/E&M (70901) Diagnoses Bipolar II disorder F31.81 Generalized anxiety disorder F41.1 ADHD F90.9
--- OUTSIDE RECORDS SUMMARY | 2024-12-07 14:51 | XMS_ITS | Encounter Summary ---
Author Organization [facility] Address [address] [facility] [address] [place] [address] Phone Care Team Providers Care Blueprint Assembler Name Role Phone Viktoriya Parker Primary Care Provider Reid Cummins Primary Care Provider + Encounter Details Date Type Department Care Team (Late st Contact Info) Description 06/27/2020 Procedure Pass [facility] - [address] [place] [address] Social History Tobacco Use Types Packs/Day Years Used Date Smoking Tobacco: Former Cigarettes 1.5 28 1 974 - 2002 Smokeless Tobacco: Never Alcohol Use Standard Drinks/Week Comments Yes 0 (1 standard drink = 0.6 oz pur e alcohol) rarely Comments No Sex and Gender Information Value Date Recorded Sex Assigned at Female 08/25/2017 12:43 PM EDT Legal Sex Female 9:45 PM EDT Gender Identity Female 08/25/2017 12:43 PM EDT Sexual Orientation Not on file documented as of this encounter Plan of Treatment Upcoming Encounters Date Type Department Care Team (Late st Contact Info) Description 12/08/2024 6:30 PM EDT Appointment [facility], [address] [address] Anat Corley MD [address] [place] [id number] documented as of this encounter Visit Diagnoses Not on filedocumented in this encounter Care Teams Blueprint Assembler Relationship Specialty Start Date End Date Viktoriya Parker PA [address] [place], [place] [address], [place] [address] PCP - General Unknown Provider Specialty 01/29/1906/28/21 Reid Cummins PA [address] [place] [address] [place] [address] PCP - General 06/29/21 documented as of this encounter Additional Source Comments The information contained in this document represents components of the legal health record. It is not the complete legal health record.[facility]
--- OUTSIDE RECORDS SUMMARY | 2024-12-07 14:51 | XMS_ITS | Encounter Summary ---
Author Organization [facility] Address [address] [facility] [address] [place] [address] Phone Care Team Providers Care Fur Dressing Supervisor Name Role Phone Reid Cummins Primary Care Provider + Encounter Details Date Type Department Care Team (Late st Contact Info) Description 06/29/2021 Ancillary Orders Virtual Department [address] [place] [address] Reid Cummins PA [address] [place] [address] Encounter for screening for osteoporosis; Hypothyroidism, unspecified type; Menopausal and female climacteric states Social History Tobacco Use Types Packs/Day Years [...] Info) Description 12/08/2024 6:30 PM EDT Appointment [facility], Bone Density - [address] [address] Anat Corley MD [address] [place] [address] [email or web address] documented as of this encounter Results * BD DXA AXIAL (SPINE) WITH HIP (10/08/2021 9:22 AM EDT) Anatomical Region Laterality Modality Bone Density Bone Density 10/08/2021 9:35 AM EDT Impressions 10/08/2021 9:53 AM EDT Normal bone density. Narrative 10/08/2021 9:53 AM EDT COMPARISON: None. BONE DENSITY FINDINGS: History: This is a 61-year-old postmenopausal female. Evaluation of the lumbar spine and hips was performed and felt to be technically adequate. L1-L4 vertebral bodies total bone mineral density was calculated at 1.068 gm/cm2 with a T-score of 0.2 falling within the WHO classification of normal. Z-score of 1.6. Right femoral neck bone mineral density was calculated at 0.810 gm/cm2 with a T- score of -0.4 falling within the WHO classification of normal. Z-score of 0.9. Total Right hip bone mineral density was calculated at 0.915 gm/cm2 with a T- score of -0.2 falling within the WHO classification of normal. Z-score of 0.7. Left femoral neck bone mineral density was calculated at 0.844 gm/cm2 with a T- score of 0 falling within the WHO classification of normal. Z-score of 1.2. Total Left hip bone mineral density was calculated at 0.955 gm/cm2 with a T- score of 0.1 falling within the WHO classification of normal. Z-score of 1. Procedure Note Bryant Ovalle MD - 10/08/2021 COMPARISON: None. BONE DENSITY FINDINGS: History: This is a 61-year-old postmenopausal female. Evaluation of the lumbar spine and hips was performed and felt to betechnically adequate. L1-L4 vertebral bodies total bone mineral density was calculated at 1.068gm/cm2 with a T-score of 0.2 falling within the WHO classification ofnormal. Z-score of 1.6. Right femoral neck bone mineral density was calculated at 0.810 gm/sx5nowm a T- score of -0.4 falling within the WHO classification of normal.Z-score of 0.9. Total Right hip bone mineral density was calculated at 0.915 gm/cm2 with aT- score of -0.2 falling within the WHO classification of normal. Z-scoreof 0.7. Left femoral neck bone mineral density was calculated at 0.844 gm/cm2 witha T- score of 0 falling within the WHO classification of normal. Z-scoreof 1.2. Total Left hip bone mineral density was calculated at 0.955 gm/cm2 with aT-score of 0.1 falling within the WHO classification of normal. Z-scoreof 1. IMPRESSION: Normal bone density. Reid EARL IMG BD BONE DENSITY DEXA Final Result documented in this encounter Visit Diagnoses Diagnosis Encounter for screening for osteoporosis Hypothyroidism, unspecified type Menopausal and female climacteric states Encounter for screening for osteoporosis Hypothyroidism, unspecified type Menopausal and female climacteric states documented in this encounter Care Teams Fur Dressing Supervisor Relationship Specialty Start Date End Date Reid Cummins PA [address] [place] [address] PCP - General 06/29/21 documented as of this encounter Additional Source Comments The information contained in this document represents components of the legal health record. It is not the complete legal health record.[facility]
--- OUTSIDE RECORDS SUMMARY | 2024-12-07 14:51 | XMS_ITS | Encounter Summary ---
Author Organization [facility] Address [address] [facility] [address] [place] [address] Phone Care Team Providers Care Rental Clerk Name Role Phone Reid Cummins Primary Care Provider + Encounter Details Date Type Department Care Team (Late st Contact Info) Description 08/30/2024 Transcribe Orders Virtual Department [address] [place] [address] Anat Corley MD [address] [place] [address] [email or web address] Encounter for screening for osteoporosis (Primary Dx) Social History Tobacco Use Types Packs/Day Years Used Date Smoking Tobacco: Former Cigarettes 1.5 28 1 974 - 2002 Smokeless Tobacco: Never Alcohol Use Standard Drinks/Week Comments Yes 0 (1 standard drink = 0.6 oz pur e alcohol) rarely Education Answer Date Recorded Are you interested in more education? Not on tito e 07/19/2022 Are you concerned about learning? Not on file 07/19/2022 No 07/19/2022 No 07/19/2022 Digital Access Answer Date Recorded No 08/17/2022 No 08/17/2022 Reliable internet access at home? Not on file 08/17/2022 Device with a working camera? Not on file Comments No Sex and Gender Information Value Date Recorded Sex Assigned at Female 08/25/2017 12:43 PM EDT Legal Sex Female 9:45 PM EDT Gender Identity Female 08/25/2017 12:43 PM EDT Sexual Orientation Not on file documented as of this encounter Plan of Treatment Upcoming Encounters Date Type Department Care Team (Late st Contact Info) Description 12/08/2024 6:30 PM EDT Appointment [facility], Bone Density - [facility] [address] [place] [address] Anat Corley MD [address] [place] [address] [email or web address] Scheduled Orders Name Type Priority Associated Diagnoses Orde r Schedule DXA Screening Imaging Routine Encounter for screening for osteoporosis Expected: 08/30/2024, Expires: 08/30/2025 documented as of this encounter Visit Diagnoses Diagnosis Encounter for screening for osteoporosis- Primary documented in this encounter Care Teams Rental Clerk Relationship Specialty Start Date End Date Reid Cummins PA [address] COUNTS IN[facility] [address] PCP - General 06/29/21 documented as of this encounter Additional Source Comments The information contained in this document represents components of the legal health record. It is not the complete legal health record.[facility]
--- OUTSIDE RECORDS SUMMARY | 2024-12-07 14:51 | XMS_ITS | Encounter Summary ---
Author Organization [facility] Address [address] [facility] [address] [place] [address] Phone Care Team Providers Care Spring Coiler Hand Name Role Phone Reid Cummins Primary Care Provider + Encounter Details Date Type Department Care Team (Latest Contact Info) Description 06/29/2021 Transcribe Orders Virtual Department [address] [place] [address] Reid Cummins PA [address] [place] [address] Breast screening (Primary Dx) Social History Tobacco Use Types [...] Info) Description 12/08/2024 6:30 PM EDT Appointment [facility], Bone Density - [facility] [address] [place] [address] Anat Corley MD [address] [place] [address] documented as of this encounter Results * BI MAMMOGRAM SCREENING WITH TOMOSYNTHESIS WITH CAD (BILATERAL) (07/30/2021 12:30 PM EDT) Anatomical Region Laterality Modality Breast Left, Breast Right, Breast Bilateral Bila teral Mammography 07/30/2021 2:42 PM EDT Impressions 07/30/2021 2:53 PM EDT No mammographic signs of malignancy. Annual screening is recommended. BI-RADS CATEGORY: 2 - Benign finding. DENSITY: There are scattered fibroglandular densities. Narrative 07/30/2021 2:53 PM EDT Bilateral mammography is performed in conjunction with computed aided detection. 3-D tomography along with 2-D C view imaging was also performed. Comparison made to previous dated as far back as 12/12/2011 and as recent as 07/27/2020. No suspicious masses, areas of architectural distortion or suspicious microcalcifications. Small asymmetry in the mid-anterior aspect of the slight outer right breast appears stable and is likely superimposed fibroglandular tissue. No correlate on the MLO view. Diffuse bilateral microcalcifications are stable. Procedure Note Brad Em MD - 07/30/2021 Bilateral mammography is performed in conjunction with computed aideddetection. 3-D tomography along with 2-D C view imaging was alsoperformed. Comparison made to previous dated as far back as 12/12/2011 andas recent as 07/27/2020. No suspicious masses, areas of architectural distortion or suspiciousmicrocalcifications. Small asymmetry in the mid-anterior aspect of theslight outer right breast appears stable and is likely superimposedfibroglandular tissue. No correlate on the MLO view. Diffuse bilateralmicrocalcifications are stable. IMPRESSION: No mammographic signs of malignancy. Annual screening is recommended. BI-RADS CATEGORY: 2 - Benign finding. DENSITY: There are scattered fibroglandular densities. us Reid EARL IMG MG EXAMS Final Re sult documented in this encounter Visit Diagnoses Diagnosis Breast screening- Primary Breast screening, unspecified Breast screening Breast screening, unspecified documented in this encounter Care Teams Spring Coiler Hand Relationship Specialty Start Date End Date Reid Cummins PA [address] [place] [address] PCP - General 06/29/21 documented as of this encounter Additional Source Comments The information contained in this document represents components of the legal health record. It is not the complete legal health record.[facility]
--- OUTSIDE RECORDS SUMMARY | 2024-12-07 14:51 | XMS_ITS | Encounter Summary ---
Author Organization [facility] Address [address] [facility] [address] [place] [phone] Phone Care Team Providers Care Reagent Tender Name Role Phone Reid Cummins Primary Care Provider + Encounter Details Date Type Department Care Team (Late st Contact Info) Description 06/29/2021 Procedure Pass [facility] - [address] [place] [address] Social History Tobacco Use Types Packs/Day Years [...] Info) Description 12/08/2024 6:30 PM EDT Appointment [facility], Bone [address] [address] Anat Corley MD [address] [place] [address] [email or web address] documented as of this encounter Visit Diagnoses Not on filedocumented in this encounter Care Teams Reagent Tender Relationship Specialty Start Date End Date Reid Cummins PA [address] [place] [address] PCP - General 06/29/21 documented as of this encounter Additional Source Comments The information contained in this document represents components of the legal health record. It is not the complete legal health record.[facility]
--- OUTSIDE RECORDS SUMMARY | 2024-12-07 14:51 | XMS_ITS | Encounter Summary ---
Author Organization [facility] Address [address] [place] [address] Phone Care Team Providers Care Headwaitress Name Role Phone Samantha Harley MD Primary Care Provider [phone] Viktoriya Parker Primary Care Provider Reid Cummins Primary Care Provider + Encounter Details Date Type Department Care Team (Latest Contact Info) Description 01/08/2018 Transcribe Orders [facility] [address] [place] [address] Samantha Harley MD [address] [place] [phone] [email or web address] Inappropriate (Primary Dx); Hypothyroidism, unspecified type; Excessive or frequent menstruation; Vitamin D deficiency; Adjustment disorder with mixed anxiety and depressed mood Social History Tobacco Use Types Packs/Day Years Used Date Smoking Tobacco: Former Cigarettes 1.5 28 1 974 - 2002 Smokeless Tobacco: Never Comments No Sex and Gender Information Value Date Recorded Sex Assigned at Female 08/25/2017 12:43 PM EDT Legal Sex Female 9:45 PM EDT Gender Identity Female 08/25/2017 12:43 PM EDT Sexual Orientation Not on file documented as of this encounter Plan of Treatment Upcoming Encounters Date Type Department Care Team (Late st Contact Info) Description 12/08/2024 6:30 PM EDT Appointment [facility], Bone [address] [address] Anat Corley MD [address] [place] [phone] [email or web address] documented as of this encounter Results * (ABNORMAL) Comprehensive metabolic panel (01/08/2018 7:23 AM EDT) SODIUM 140 133 - 146 mmol/L [facility] POTASSIUM 4.3 3.3 - 5.1 mmol/L [facility] CHLORIDE 101 96 - 108 mmol/L [facility] CO2 25 21 - 35 mmol/L [facility] BUN 13 6 - 19 mg/dL [facility] CREATININE 0.80 0.5 - 1.5 mg/dL [facility] GLUCOSE 106(H) 70 - 99 mg/dL [facility] ALBUMIN 4.2 3.9 - 4.8 g/dL [facility] TOTAL PROTEIN 7.3 6.5 - 8.0 g/dL [facility] CALCIUM 9.0 8.4 - 10.3 mg/dL [facility] ALKALINE PHOSPHATASE 62 39 - 117 U/L [facility] TOTAL BILIRUBIN 0.5 0.0 - 1.2 mg/dL [facility] AST 16 0 - 37 U/L [facility] ALT 19 0 - 40 U/L [facility] GLOBULIN 3.1 1 - 4.8 g/dL [facility] EGFR 83 >59 mL/min/1.7 3m2 [facility] Comment:If patient is black, multiply result by 1.159. Estimated glomerular filtration rate calculated using the CKD-EPI equation. ANION GAP 18 10 - 20 mmol/L [facility] Blood 01/08/2018 7:23 AM EDT 01/08/2018 7:26 AM EDT us Samantha Harley MD LAB BLOOD ORDERABLES Final R esult [facility] [address] [place] [address] * (ABNORMAL) Lipid panel (01/08/2018 7:23 AM EDT) HDL 61 mg/dL [facility] Comment: Interpretation: Risk Level Females Decreased >55mg/dL Average 50-55 mg/dL Increased <50 mg/dL CHOLESTEROL 213 0 - 240 mg/dL [facility] TRIGLYCERIDES 105 30 - 160 mg/dL [facility] LDL 131(H) 50 - 129 mg/dL [facility] Comment: LDL levels in terms of risk for coronary heart disease: <100 mg/dL: Optimal 100-129 mg/dL: Near or above optimal 130-159 mg/dL: Borderline high 160-189 mg/dL: High >190 mg/dL: Very High CARDIAC RISK RATIO 3.5 3.3 - 4.4 C [facility] Blood 01/08/2018 7:23 AM EDT 01/08/2018 7:26 AM EDT Samantha Harley MD LAB BLOOD ORDERABLES Final R esult Performing Organization Address City/[facility]/ZIP Co de Phone Number [address] [address] * 25-OH vitamin D (01/08/2018 7:23 AM EDT) 25 [place] VIT D (TOTAL) 46 30 - 60 ng/mL [facility] Blood 01/08/2018 7:23 AM EDT 01/08/2018 7:26 AM EDT Samantha Harley MD LAB BLOOD ORDERABLES Final R esult Performing Organization Address City/[facility]/ZIP Co de Phone Number [address] [address] * (ABNORMAL) CBC and differential (01/08/2018 7:23 AM EDT) WBC 5.39 3.40 - 11.20 K/uL [facility] RBC 4.23 3.80 - 4.80 M/uL [facility] HGB 11.7(L) 12.0 - 15.0 g/dL [facility] HCT 37.6 36.0 - 46.0 % [facility] PLT 365 130 - 400 K/uL [facility] MCV 88.9 79.0 - 98.0 fL [facility] MCH 27.7 27.0 - 34.8 pg [facility] MCHC 31.1(L) 31.5 - 36.0 g/dL [facility] RDW 15.7(H) 10.8 - 14.6 % [facility] MPV 10.1 9.4 - 12.4 fl [facility] NRBC 0.00 /100 WBCs [facility] ABSOLUTE NRBC 0.00 K/uL [facility] DIFF METHOD Auto [facility] NEUTS 53.4 45.30 - 77.70 % [facility] LYMPHS 30.8 12.30 - 39.70 % [facility] MONOS 10.6 4.10 - 12.80 % [facility] EOS 3.3 0 - 7.2 % [facility] BASOS 1.7 0 - 2.80 % [facility] Granulocytes, immature (%) 0.2 0.0 - 0.9 % [facility] ABSOLUTE NEUTS 2.88 1.40 - 7.70 K/uL [facility] ABSOLUTE LYMPHS 1.66 0.60 - 3.20 K/uL [facility] ABSOLUTE MONOS 0.57 0.11 - 0.59 K/uL [facility] ABSOLUTE EOS 0.18 0.01 - 0.50 K/uL [facility] ABSOLUTE BASOS 0.09(H) 0.00 - 0.08 K/uL [facility] Granulocytes, immature 0.01 0.00 - 0.05 K/uL [facility] Blood 01/08/2018 7:23 AM EDT 01/08/2018 7:26 AM EDT us Samantha Harley MD LAB BLOOD ORDERABLES Final R esult [facility] [address] [place] [address] * (ABNORMAL) TSH with reflex (01/08/2018 7:23 AM EDT) TSH 4.34(H) 0.27 - 4.20 uIU/mL [facility] Blood 01/08/2018 7:23 AM EDT 01/08/2018 7:26 AM EDT Samantha Harley MD LAB BLOOD ORDERABLES Final R esult Performing Organization Address City/[facility]/ZIP Co de Phone Number [address] [address] * Prolactin (01/08/2018 7:23 AM EDT) PROLACTIN 20.9 4.8 - 23.3 ng/mL [facility] Blood 01/08/2018 7:23 AM EDT 01/08/2018 7:26 AM EDT us Samantha Harley MD LAB BLOOD ORDERABLES Final R esult Performing Organization Address [facility]/[place] Co de Phone Number [address] [address] documented in this encounter Visit Diagnoses Diagnosis Inappropriate - Primary Galactorrhea associated with childbirth, unspecified as to episode of care Hypothyroidism, unspecified type Excessive or frequent menstruation Vitamin D deficiency Adjustment disorder with mixed anxiety and depressed mood documented in this encounter Care Teams Headwaitress Relationship Specialty Start Date End Date Samantha Harley MD [address] [place] [address] [email or web address] PCP - General Internal Medicine 06/04/17 01/28/19 Viktoriya Parker PA [address] [place] [address] PCP - General Unknown Provider Specialty 01/29/1906/28/21 Reid Cummins PA [address] [place] [address] PCP - General 06/29/21 documented as of this encounter Additional Source Comments The information contained in this document represents components of the legal health record. It is not the complete legal health record.[facility]
--- OUTSIDE RECORDS SUMMARY | 2024-12-07 14:51 | XMS_ITS | Encounter Summary ---
Author Organization [facility] Address [address] [facility] [address] [place] [address] Phone Care Team Providers Care Ground Crewman Name Role Phone Viktoriya Parker Primary Care Provider Reid Cummins Primary Care Provider + Encounter Details Date Type Department Care Team (Late st Contact Info) Description 05/01/2021 Transcribe Orders [address] [place] [address] Elmo Ly, DO [address] [facility], [address] [place] [address] [email or web address] Allergic rhinitis, unspecified seasonality, unspecified trigger (Primary Dx); Moderate persistent asthma, unspecified whether complicated; Allergic rhinitis due to pollen, unspecified seasonality; Allergic rhinitis due to animal (cat) (dog) hair and dander Social History Tobacco Use Types Packs/Day Years [...] Info) Description 12/08/2024 6:30 PM EDT Appointment [facility], Bone Density - [address] [address] Anat Corley MD [address] [place] [address] [email or web address] documented as of this encounter Results * TSH (05/01/2021 3:20 PM EST) TSH 2.24 0.27 - 4.20 uIU/mL [facility] Blood 05/01/2021 3:20 PM EST 05/01/2021 6:51 PM EST Elmo Bronson [facility] LAB BLOOD ORDERABLES Final R esult Performing Organization Address City/[facility]/ZIP Co de Phone Number [address] [address] * Free T4 (05/01/2021 3:20 PM EST) Pathologist [facility] FREE T4 1.4 0.9 - 1.7 ng/dL [facility] Blood 05/01/2021 3:20 PM EST 05/01/2021 6:51 PM EST [facility] Final R esult [address] [address] * Comprehensive metabolic panel (05/01/2021 3:20 PM EST) SODIUM 138 133 - 146 mmol/L [facility] POTASSIUM 4.1 3.3 - 5.1 mmol/L [facility] CHLORIDE 101 96 - 108 mmol/L [facility] CO2 27 21 - 35 mmol/L [facility] BUN 13 6 - 19 mg/dL [facility] CREATININE 0.80 0.5 - 1.5 mg/dL [facility] GLUCOSE 91 70 - 99 mg/dL [facility] ALBUMIN 4.4 3.9 - 4.8 g/dL [facility] TOTAL PROTEIN 7.3 6.5 - 8.0 g/dL [facility] CALCIUM 9.5 8.4 - 10.3 mg/dL [facility] ALKALINE PHOSPHATASE 96 39 - 117 U/L [facility] TOTAL BILIRUBIN 0.3 0.0 - 1.2 mg/dL [facility] AST 24 0 - 37 U/L [facility] ALT 16 0 - 40 U/L [facility] GLOBULIN 2.9 1 - 4.8 g/dL [facility] EGFR 85 >59 mL/min/1.7 3m2 [facility] Comment:Estimated glomerular filtration rate calculated using the CKD-EPI refit equation. ANION GAP 14 10 - 20 mmol/L [facility] Blood 05/01/2021 3:20 PM EST 05/01/2021 6:51 PM EST Elmo Ly DO LAB BLOOD ORDERABLES Final R esult [address] [address] * CBC and differential (05/01/2021 3:20 PM EST) WBC 8.63 4.00 - 11.00 K/uL [facility] RBC 4.18 3.72 - 5.30 M/uL [facility] HGB 12.9 11.4 - 15.9 g/dL [facility] HCT 39.4 34.2 - 46.8 % [facility] PLT 380 140 - 430 K/uL [facility] MCV 94.3 78.0 - 97.0 fL [facility] MCH 30.9 25.0 - 33.0 pg [facility] MCHC 32.7 32.0 - 36.0 g/dL [facility] RDW 13.0 11.0 - 16.0 % [facility] MPV 10.4 8.4 - 12.8 fl [facility] NRBC 0.00 0 /100 WBCs [facility] ABSOLUTE NRBC 0.00 0 K/uL [facility] DIFF METHOD Auto [facility] NEUTS 57.7 43.0 - 75.0 % [facility] LYMPHS 29.5 18.2 - 47.4 % [facility] MONOS 8.6 4.00 - 11.00 % [facility] EOS 2.9 0.0 - 8.0 % [facility] BASOS 1.0 0.0 - 2.0 % [facility] Granulocytes, immature (%) 0.3 0.0 - 0.9 % [facility] ABSOLUTE NEUTS 4.97 1.80 - 7.70 K/uL [facility] ABSOLUTE LYMPHS 2.55 1.00 - 3.10 K/uL [facility] ABSOLUTE MONOS 0.74 0.20 - 0.80 K/uL [facility] ABSOLUTE EOS 0.25 0.00 - 0.80 K/uL [facility] ABSOLUTE BASOS 0.09 0.00 - 0.09 K/uL [facility] Granulocytes, immature 0.03 0.00 - 0.05 K/uL [facility] Blood 05/01/2021 3:20 PM EST 05/01/2021 6:51 PM EST Elmo Ly DO LAB BLOOD ORDERABLES Final R esult Performing Organization Address City/State/[facility] Co de Phone Number [facility] [address] [place] [address] documented in this encounter Visit Diagnoses Diagnosis Allergic rhinitis, unspecified seasonality, unspecified trigger- Primary Moderate persistent asthma, unspecified whether complicated Allergic rhinitis due to pollen, unspecified seasonality Allergic rhinitis due to animal (cat) (dog) hair and dander documented in this encounter Care Teams Ground Crewman Relationship Specialty Start Date End Date Viktoriya Parker PA [address] [place] [address] [place] [phone] PCP - General Unknown Provider Specialty 01/29/1906/28/21 Reid Cummins PA [address] [facility] [address] [place] [phone] PCP - General 06/29/21 documented as of this encounter Additional Source Comments The information contained in this document represents components of the legal health record. It is not the complete legal health record.[facility]
--- OUTSIDE RECORDS SUMMARY | 2024-12-07 14:51 | XMS_ITS | Encounter Summary ---
Author Organization [facility] Address [address] [facility] [address] [place] [address] Phone Care Team Providers Care Termite Control Service Representative Name Role Phone Reid Cummins Primary Care Provider + Encounter Details Date Type Department Care Team (Latest Contact Info) Description 09/29/2023 Transcribe Orders Virtual Department [address] [place] [address] Nilesh Aguirre MD [address] [place] [address] [email or web address] Dysphagia, unspecified type (Primary Dx) Social History Tobacco Use Types [...] Info) Description 12/08/2024 6:30 PM EDT Appointment [facility] [address] [place] [address] Anat Corley MD [address] [place] [address] [email or web address] documented as of this encounter Results * FL (Speech) Video Swallow Study (12/23/2023 10:08 AM EDT) Anatomical Region Laterality Modality Radio Fluoroscop y 12/23/2023 12:2 3 PM EDT Impressions 12/23/2023 4:54 PM EDT Transient laryngeal penetration with thin liquids without yanick aspiration. Please refer to the clinical notes by the Speech Pathologist for detailed description of the Modified Swallow findings. FLUOROSCOPY TIME: 57 seconds NUMBER OF IMAGES: [phone] ATTESTATION: I, Brad Em as teaching physician, have reviewed the images for this case and if necessary edited the report originally created by Greg Luna. Narrative 12/23/2023 4:54 PM EDT [place] MODIFIED BARIUM SWALLOW HISTORY:Dysphagia. COMPARISON:Chest radiograph 09/25/2018. OPERATORS: Greg Luna SUPERVISING PHYSICIAN: Brad Em TECHNIQUE: Fluoroscopic assistance was provided for the speech pathologist during video swallow. The patient was observed in the lateral projection while being fed various consistencies of barium (thin liquids, applesauce, pudding and cracker). FINDINGS: The oral and pharyngeal stages of swallowing will be reported separately by the Department of Speech and Language Pathology. A video swallowing study demonstrated a grossly normal swallowing mechanism. There was transient laryngeal penetration with thin liquids without yanick aspiration. No laryngeal penetration seen on all other trialed barium consistencies. No significant pharyngeal residue. Procedure Note Brad Em MD - 12/23/2023 FL MODIFIED BARIUM SWALLOW HISTORY:Dysphagia. COMPARISON:Chest radiograph 09/25/2018. OPERATORS: Greg Luna SUPERVISING PHYSICIAN: Brad Em TECHNIQUE: Fluoroscopic assistance was provided for the speech pathologist duringvideo swallow. The patient was observed in the lateral projection whilebeing fed various consistencies of barium (thin liquids, applesauce,pudding and cracker). FINDINGS: The oral and pharyngeal stages of swallowing will be reported separatelyby the Department of Speech and Language Pathology. A video swallowing study demonstrated a grossly normal swallowingmechanism. There was transient laryngeal penetration with thin liquidswithout yanick aspiration. No laryngeal penetration seen on all othertrialed barium consistencies. No significant pharyngeal residue. IMPRESSION: Transient laryngeal penetration with thin liquids without frankaspiration. Please refer to the clinical notes by the Speech Pathologist for detaileddescription of the Modified Swallow findings. FLUOROSCOPY TIME: 57 seconds NUMBER OF IMAGES: [phone] ATTESTATION: I, Brad Em as teaching physician, have reviewed theimages for this case and if necessary edited the report originally createdby Greg Luna. Nilesh Aguirre MD IMG FL EXAMS Final Result documented in this encounter Visit Diagnoses Diagnosis Dysphagia, unspecified type- Primary Dysphagia, unspecified type- Primary documented in this encounter Care Teams Termite Control Service Representative Relationship Specialty Start Date End Date Reid Cummins PA [address] [place] [address] PCP - General 06/29/21 documented as of this encounter Additional Source Comments The information contained in this document represents components of the legal health record. It is not the complete legal health record.[facility]
--- OUTSIDE RECORDS SUMMARY | 2024-12-07 14:52 | XMS_ITS | Encounter Summary ---
Author Organization [facility] Address [address] [place] [address] Phone Care Team Providers Care Block And Case Maker Name Role Phone Viktoriya Parker Primary Care Provider Reid Cummins Primary Care Provider + Encounter Details Date Type Department Care Team (Late Contact Info) Description 09/07/2020 Ancillary Orders Virtual Department [address] [place] [address] Kellie Tesfaye NP [address] [place] [address] [email or web address] Encounter for screening for osteoporosis; Hypothyroidism, unspecified type Social History Tobacco Use Types Packs/Day Years [...] Encounters Date Type Department Care Team (Late Contact Info) Description 12/08/2024 6:30 PM EDT Appointment [facility], Bone Density - [address] [address] Anat Corley MD [address] [place] [address] [email or web address] documented as of this encounter Visit Diagnoses Diagnosis Encounter for screening for osteoporosis Hypothyroidism, unspecified type documented in this encounter Care Teams Block And Case Maker Relationship Specialty Start Date End Date Viktoriya Parker PA [address] [place] [address] PCP - General Unknown Provider Specialty 01/29/1906/28/21 Reid Cummins PA [address] [place] [address] [place] [address] PCP - General 06/29/21 documented as of this encounter Additional Source Comments The information contained in this document represents components of the legal health record. It is not the complete legal health record.[facility]
--- OUTSIDE RECORDS SUMMARY | 2024-12-07 14:52 | XMS_ITS | Encounter Summary ---
Author Organization [facility] Address [address] [place] [address] [place] [address] Phone Care Team Providers Care Photovoltaic Testing Technician Name Role Phone Reid Cummins Primary Care Provider + Encounter Details Date Type Department Care Team (Latest Contact Info) Description 08/01/2022 Transcribe Orders Virtual Department [address] [place] [address] Reid Cummins PA [address] [place] [address] Breast screening (Primary Dx) Social History Tobacco [...] on file 07/19/2022 No 07/19/2022 No 07/19/2022 Comments No Sex and Gender Information Value Date Recorded Sex Assigned at Female 08/25/2017 12:43 PM EDT Legal Sex Female 9:45 PM EDT Gender Identity Female 08/25/2017 12:43 PM EDT Sexual Orientation Not on file documented as of this encounter Plan of Treatment Upcoming Encounters Date Type Department Care Team (Late st Contact Info) Description 12/08/2024 6:30 PM EDT Appointment [facility], Bone [facility] [address] [place] [address] Anat Corley MD [address] [place] [address] [email or web address] documented as of this encounter Results * BI MAMMOGRAM SCREENING WITH TOMOSYNTHESIS WITH CAD (BILATERAL) (06/20/2023 3:05 PM EDT) Anatomical Region Laterality Modality Breast Left, Breast Right, Breast Bilateral Bila teral Mammography 06/24/2023 11:4 7 AM EDT Impressions 06/24/2023 4:56 PM EDT No mammographic evidence of malignancy in either breast. Annual screening mammography is recommended. BI-RADS 2 BENIGN The patient will be notified of the results and recommendations. Narrative 06/24/2023 4:56 PM EDT BI MAMMOGRAM SCREENING WITH TOMOSYNTHESIS WITH CAD (BILATERAL) Additional patient information: Screening. The patient is status-post remote bilateral benign excisional biopsies. COMPARISON: Comparison is made with relevant prior imaging. Breast composition: There are scattered areas of fibroglandular density. FINDINGS: No abnormal masses, suspicious calcifications, or other significant findings are identified mammographically in either breast. Stable diffuse bilateral microcalcifications. Procedure Note Brad Em MD - 06/24/2023 BI MAMMOGRAM SCREENING WITH TOMOSYNTHESIS WITH CAD (BILATERAL) Additional patient information: Screening. The patient is status-postremote bilateral benign excisional biopsies. COMPARISON: Comparison is made with relevant prior imaging. Breast composition: There are scattered areas of fibroglandular density. FINDINGS: No abnormal masses, suspicious calcifications, or other significantfindings are identified mammographically in either breast. Stable diffusebilateral microcalcifications. IMPRESSION: No mammographic evidence of malignancy in either breast. Annual screening mammography is recommended. BI-RADS 2 BENIGN The patient will be notified of the results and recommendations. us Reid EARL IMG MG EXAMS Final Re sult documented in this encounter Visit Diagnoses Diagnosis Breast screening- Primary Breast screening, unspecified Breast screening Breast screening, unspecified documented in this encounter Care Teams Photovoltaic Testing Technician Relationship Specialty Start Date End Date Reid Cummins PA [address] [place] [address] PCP - General 06/29/21 documented as of this encounter Additional Source Comments The information contained in this document represents components of the legal health record. It is not the complete legal health record.[facility]
--- OUTSIDE RECORDS SUMMARY | 2024-12-07 14:52 | XMS_ITS | Encounter Summary ---
Author Organization [facility] Address [address] [facility] [address] [place] [phone] Phone Care Team Providers Care Sign Artist Name Role Phone Samantha Harley MD Primary Care Provider [phone] Viktoriya Parker Primary Care Provider Reid Cummins Primary Care Provider + Encounter Details Date Type Department Care Team (Late st Contact Info) Description 04/14/2018 Procedure Pass [place] Admitting Dept - [facility] Department [address] [place] [phone] Social History Tobacco Use Types Packs/Day Years [...] Info) Description 12/08/2024 6:30 PM EDT Appointment [facility], Bone [address] [address] Anat Corley MD [address] [place] [address] [email or web address] documented as of this encounter Visit Diagnoses Not on filedocumented in this encounter Care Teams Sign Artist Relationship Specialty Start Date End Date Samantha Harley MD [address] [place] [address] [email or web address] PCP - General Internal Medicine 06/04/17 01/28/19 Viktoriya Parekr PA [address] [place] [address] PCP - General Unknown Provider Specialty 01/29/1906/28/21 Reid Cummins PA [address] [place] [address] PCP - General 06/29/21 documented as of this encounter Additional Source Comments The information contained in this document represents components of the legal health record. It is not the complete legal health record.[facility]
--- OUTSIDE RECORDS SUMMARY | 2024-12-07 14:52 | XMS_ITS | Clinical Summary ---
Author Organization [facility] Address [address] [place] [address] Phone Care Team Providers Care Client Service Coordinator Name Role Phone Reid Cummins Primary Care Provider + Allergies Active Allergy Reactions Criticality Noted Date Comments Fluoxetine 02/24/2015 Other reaction(s): suicidal thoughts Gabapentin 02/24/2015 Other reaction(s): distortion Levofloxacin Rash Low 02/24/2015 Paroxetine Hcl 02/24/2015 Other reaction(s): suicidal thoughts Medications albuterol (ACCUNEB) 0.63 mg/3 mL nebulizer solution Active biotin 5 mg Cap 1 capsule Acti ve clonazePAM (KLONOPIN) 0.5 MG tablet 1 tablet Active lamoTRIgine (LAMICTAL) 150 MG tablet 300 mg. Active levothyroxine (SYNTHROID) 75 MCG tablet 100 mcg. Active pantoprazole (PROTONIX) 20 MG tablet 1 tab(s) Active albuterol (PROAIR HFA) 90 mcg/actuation inhaler 2 puffs as needed Active montelukast (SINGULAIR) 10 mg tablet 1 tablet Active cholecalciferol , vitamin D3, 1,000 unit capsule 1 capsule Active buPROPion (WELLBUTRIN SR) 150 MG SR 12 hr tablet Take 150 mg by mouth 2 (two) times a day. Active fluticasone-dinesh anterol (BREO ELLIPTA) 200-25 mcg/dose DsDv Inhale into the lungs daily. Active cetirizine (ZYRTEC) 10 MG tablet Take 10 mg by mouth daily. Active diclofenac sodium (VOLTAREN) 1 % Gel Active [id number] ORAL Take by mouth. Active b complex vitamins capsule Take 1 capsule by mouth daily. 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 Incision was loosely packed with dry gauze and covered with a dry sterile dressing. The patient will remove this tomorrow and shower. She will keep the area covered until it appropriately scabs. I will see her back in 1 week for follow-up. Family History Medical History Relation Comments Diabetes mellitus Father Ovarian cancer Mother Breast cancer Paternal Aunt Relation Status Comments Father Mother Paternal Aunt Social History Tobacco Use Types Packs/Day Years [...] PM EDT Sexual Orientation Not on file Last Filed Vital Signs Vital Sign Reading Time Taken Comments Blood Pressure 122/78 04/20/2021 8:39 AM EST Pulse 81 04/20/2021 8:39 AM EST Temperature 36.7 C (98 F) 09/25/2018 1:10 PM EDT Respiratory Rate 17 09/25/2018 1:10 PM EDT Oxygen Saturation 98% 04/20/2021 8:39 AM EST Inhaled Oxygen Concentration - - Weight 77.1 kg (170 lb) 04/20/2021 8:39 AM EST Height 152.4 cm (5') 04/20/2021 8:39 AM EST Body Mass Index 33.2 04/20/2021 8:39 AM EST Plan of Treatment Upcoming Encounters Date Type Department Care Team (Late st Contact Info) Description 12/08/2024 6:30 PM EDT Appointment [facility], Bone Density [address] [address] An[place] [address] [email or web address] Health Maintenance Due Date Last Done Comments Adult Td,Tdap Booster 1962 DEPRESSION SCREENING 1974 HIV ONE-TIME SCREENING (18-65 YEARS) 1980 COLOGUARD 2007 COLONOSCOPY 2007 COLORECTAL CANCER SCREENING 2007 FIT TEST 2007 FOBT 2007 SIGMOIDOSCOPY 2007 VIRTUAL COLONOSCOPY 2007 PNEUMOCOCCAL VACCINES (50+ years) (1 of 1 - PCV) 2012 ZOSTER VACCINES (1 of 2) 2012 PAP SMEAR 04/14/2021 04/14/2018 TSH LEVEL 08/05/2024 08/06/2023, 02/0 10/2021, 02/11/2018, Additional history exists INFLUENZA VACCINE (#1) 2024 , 01/08/2017, 03/25/2016 COVID-19 VACCINE (3 - season) 2024 06/14/2020, 05/17/2020 MAMMOGRAM 06/19/2025 06/20/2023, 05/0 11/2021, 07/27/2020, Additional history exists LIPID PANEL 08/05/2028 08/06/2023, 01/08/2018 RSV VACCINE (1 - 1-dose 75+ series) 2037 HEPATITIS C SCREENING Completed 08/06/2023 SMOKING STATUS SCREENING (Once After 26 Yrs) Completed 12/23/2023 HEPATITIS A VACCINES Aged Out No long er eligible based on patient's age to complete this topic HIB VACCINES Aged Out No longer eligi ble based on patient's age to complete this topic MENINGOCOCCAL VACCINES (ACWY) Aged Out No longer eligible based on patient's age to complete this topic MENINGOCOCCAL VACCINES (B) Aged Out N o longer eligible based on patient's age to complete this topic Medical Devices Not on file Procedures Procedure Name Priority Date/Time Associated Diagnosis Comments LIPID PANEL Routine 08/06/2023 9:48 AM EDT Laboratory tests ordered as part of a complete physical exam (CPE) Fatigue, unspecified type Hyperlipidemia, unspecified hyperlipidemia type Hypothyroidism, adult HEPATITIS C ANTIBODY, QUALITATIVE Routine 08/06/2023 9:48 AM EDT Need for hepatitis C screening test Laboratory tests ordered as part of a complete physical exam (CPE) Fatigue, unspecified type Hyperlipidemia, unspecified hyperlipidemia type Hypothyroidism, adult TSH WITH REFLEX Routine 08/06/2023 9:48 AM EDT Laboratory tests ordered as part of a complete physical exam (CPE) Fatigue, unspecified type Hyperlipidemia, unspecified hyperlipidemia type Hypothyroidism, adult BI MAMMOGRAM SCREENING WITH TOMOSYNTHESIS WITH CAD (BILATERAL) Routine 06/20/2023 3:05 PM EDT Breast screening from Last 3 Months or Most Recently Relevant to Health Maintenance Results * TSH with reflex (08/06/2023 9:48 AM EDT) TSH 1.10 0.27 - 4.20 uIU/mL [facility] Blood 08/06/2023 9:48 AM EDT 08/06/2023 9:56 AM EDT Reid EARL LAB BLOOD ORDERABLES Fin al Result [address] [address] * Hepatitis C antibody, qualitative (08/06/2023 9:48 AM EDT) HCV NON-REACTIV E NON-REACTI VE [facility] Blood 08/06/2023 9:48 AM EDT 08/06/2023 9:56 AM EDT Reid EARL LAB BLOOD ORDERABLES Fin al Result Performing Organization Address [facility] Co de Phone Number [address] [address] * (ABNORMAL) Lipid panel (08/06/2023 9:48 AM EDT) HDL 64 mg/dL [facility] Comment: Interpretation <40 mg/dL: Low HDL cholesterol (major risk factor for CHD) Greater than or equal to 60 mg/dL: High HDL cholesterol ( negative risk factor for CHD) HDL - cholesterol is affected by a number of factors, e.g. smoking, excerise, hormones, sex and age. CHOLESTEROL 237 0 - 240 mg/dL [facility] TRIGLYCERIDES 186(H) 30 - 160 mg/dL [facility] LDL 136(H) 50 - 129 mg/dL [facility] Comment: LDL levels in terms of risk for coronary heart disease: <100 mg/dL: Optimal 100-129 mg/dL: Near or above optimal 130-159 mg/dL: Borderline high 160-189 mg/dL: High >190 mg/dL: Very High CARDIAC RISK RATIO 3.7 3.3 - 4.4 C [facility] Blood 08/06/2023 9:48 AM EDT 08/06/2023 9:56 AM EDT Reid EARL LAB BLOOD ORDERABLES Fin al Result [address] [address] * BI MAMMOGRAM SCREENING WITH TOMOSYNTHESIS WITH [...] be notified of the results and recommendations. Reid EARL IMG MG EXAMS Final Re sult from Last 3 Months or Most Recently Relevant to Health Maintenance [place] [address] [address] [place] [address] [address] [facility] CHOICE [facility] CHOICE [facility] CHOICE [facility] [place] [address] Advance Directives For more information, please contact: [phone] (9AM - 5PM [place], Friday-Friday) * Full Code (Presumed) (Latest Code Status on File) Date Activated Date Inactivated Comments 04/14/2018 8:35 AM 04/14/2018 5:01 PM Care Teams Client Service Coordinator Relationship Specialty Start Date End Date Reid Cummins PA [address] [place], [place] [address] PCP - General 06/29/21 Additional Source Comments The information contained in this document represents components of the legal health record. It is not the complete legal health record.[facility]
--- OUTSIDE RECORDS SUMMARY | 2024-12-07 14:52 | XMS_ITS | Encounter Summary ---
Author Organization [facility] Address [address] [facility] [address] [place] [address] Phone Care Team Providers Care Immigration Case Manager Name Role Phone Reid Cummins Primary Care Provider + Encounter Details Date Type Department Care Team (Late st Contact Info) Description 08/01/2022 Procedure Pass [facility] - [address] [place] [address] Social History Tobacco Use Types Packs/Day Years [...] Info) Description 12/08/2024 6:30 PM EDT Appointment [facility], Bone Density - [address] [address] Anat Corley MD [address] [place] [phone] [email or web address] documented as of this encounter Visit Diagnoses Not on filedocumented in this encounter Care Teams Immigration Case Manager Relationship Specialty Start Date End Date Reid Cummins PA [address] [place] [address] PCP - General 06/29/21 documented as of this encounter Additional Source Comments The information contained in this document represents components of the legal health record. It is not the complete legal health record.[facility]
--- OUTSIDE RECORDS SUMMARY | 2024-12-07 14:52 | XMS_ITS | Encounter Summary ---
Author Organization [facility] Address [address] [facility] [address] [place] [address] Phone Care Team Providers Care Biofuels Operations Manager Name Role Phone Samantha Harley MD Primary Care Provider [phone] Viktoriya Parker Primary Care Provider Reid Cummins Primary Care Provider + Encounter Details Date Type Department Care Team (Late st Contact Info) Description 08/08/2017 Ancillary Orders Virtual Department [address] [place] [address] Samantha Harley MD [address] [place] [address] [email or web address] Unspecified lump in the left breast, unspecified quadrant Social History Tobacco Use Types Packs/Day Years Used Date Smoking Tobacco: Former Cigarettes 1.5 28 1 974 - 2002 Smokeless Tobacco: Never Comments Unknown Sex and Gender Information Value Date Recorded Sex Assigned at Female 08/25/2017 12:43 PM EDT Legal Sex Female 9:45 PM EDT Gender Identity Female 08/25/2017 12:43 PM EDT Sexual Orientation Not on file documented as of this encounter Plan of Treatment Upcoming Encounters Date Type Department Care Team (Late st Contact Info) Description 12/08/2024 6:30 PM EDT Appointment [facility], Bone [facility] [address] [place] [address] Anat Corley MD [address] [place] [phone] [email or web address] documented as of this encounter Results * BI US BREAST LIMITED (LEFT) (08/25/2017 1:44 PM EDT) Anatomical Region Laterality Modality Breast Left, Breast Bilateral Left Ul trasound 08/25/2017 1:46 PM EDT Impressions 08/25/2017 1:49 PM EDT Stable clustered microcysts. I do not believe this finding warrants further follow-up. Return to routine bilateral screening mammography is recommended. The results were relayed to the patient. Ultrasound BI-RADS CATEGORY 2 - BENIGN POS [id number] Narrative 08/25/2017 1:49 PM EDT Six months follow-up ultrasound left breast Imaging of the 2:00 area of the breast approximately 3 cm from the nipple is compared to the study on 01/13/2017. There continues to be a cluster of microcysts within aggregate measurement of approximately 4 x 6 x 9 mm. The appearance is extremely stable compared to December and almost certainly benign, likely due to apocrine metaplasia. Procedure Note Kailash Lugo MD - 08/25/2017 Six months follow-up ultrasound left breast Imaging of the 2:00 area of the breast approximately 3 cm from the nippleis compared to the study on 01/13/2017. There continues to be a cluster of microcysts within aggregate measurementof approximately 4 x 6 x 9 mm. The appearance is extremely stable comparedto December and almost certainly benign, likely due to apocrinemetaplasia. IMPRESSION: Stable clustered microcysts. I do not believe this finding warrantsfurther follow-up. Return to routine bilateral screening mammography isrecommended. The results were relayed to the patient. Ultrasound BI-RADS CATEGORY 2 - BENIGN POS [id number] Samantha Harley MD IMG US BREAST Final Result * BI MAMMOGRAM DIAGNOSTIC WITH TOMOSYNTHESIS WITH CAD (LEFT) (08/25/2017 1:07 PM EDT) Anatomical Region Laterality Modality Breast Left, Breast Bilateral Left Ma mmography 08/25/2017 1:19 PM EDT Impressions 08/25/2017 1:52 PM EDT Stable small lobulated density seen in only one view on 3-D imaging. No new findings worrisome for malignancy. Return to routine bilateral screening is recommended. BI-RADS CATEGORY: 2 - Benign finding. DENSITY: The breast tissue is heterogeneously dense, an appearance which lowers the sensitivity of mammography. POS CDHMAMA Narrative 08/25/2017 1:52 PM EDT COMPARISON: 12/12/2011 through 01/08/2017. This is a six-month follow-up exam. Digital 3-D tomosynthesis with 2-D reconstructions in the CC and MLO view of the breast was obtained. Computer-aided detection system also utilized. Ultrasound was also performed. The overall appearance is unchanged including the faint lobulated density seen on the cc tomosynthesis images in the lateral breast between two and 3:00. Subsequent ultrasound of this area showed no change in a cluster of microcysts. No new mass, asymmetry, architectural distortion or worrisome calcifications have become apparent on this side. Procedure Note Kailash Lugo MD - 08/25/2017 COMPARISON: 12/12/2011 through 01/08/2017. This is a six-month follow-up exam. Digital 3-D tomosynthesis with 2-D reconstructions in the CC and MLO viewof the breast was obtained. Computer-aided detection system also utilized.Ultrasound was also performed. The overall appearance is unchanged including the faint lobulated densityseen on the cc tomosynthesis images in the lateral breast between two and3:00. Subsequent ultrasound of this area showed no change in a cluster ofmicrocysts. No new mass, asymmetry, architectural distortion or worrisomecalcifications have become apparent on this side. IMPRESSION: Stable small lobulated density seen in only one view on 3-D imaging. Nonew findings worrisome for malignancy. Return to routine bilateralscreening is recommended. BI-RADS CATEGORY: 2 - Benign finding. DENSITY: The breast tissue is heterogeneously dense, an appearance whichlowers the sensitivity of mammography. POS CDHMAMA us Samantha Harley MD IMG MG EXAMS Final Result documented in this encounter Visit Diagnoses Diagnosis Unspecified lump in the left breast, unspecified quadrant Unspecified lump in the left breast, unspecified quadrant Unspecified lump in the left breast, unspecified quadrant documented in this encounter Care Teams Biofuels Operations Manager Relationship Specialty Start Date End Date Samantha Harley MD [address] [place] [address] [email or web address] PCP - General Internal Medicine 06/04/17 01/28/19 Viktoriya Parker PA [address] [place] [address] PCP - General Unknown Provider Specialty 01/29/1906/28/21 Reid Cummins PA [address] [place] [address] PCP - General 06/29/21 documented as of this encounter Additional Source Comments The information contained in this document represents components of the legal health record. It is not the complete legal health record.[facility]
--- OUTSIDE RECORDS SUMMARY | 2024-12-07 14:52 | XMS_ITS | Encounter Summary ---
Author Organization [facility] Address [address] [facility] [address] [place] [address] Phone Care Team Providers Care Cell Manager Name Role Phone Viktoriya Parker Primary Care Provider Reid Cummins Primary Care Provider + Encounter Details Date Type Department Care Team (Latest Contact Info) Description 08/28/2020 Ancillary Orders Virtual Department [address] [place] [address] Kellie Tesfaye NP [address] [address] [email or web address] Encounter for screening for osteoporosis Social History Tobacco Use Types Packs/Day Years [...] Info) Description 12/08/2024 6:30 PM EDT Appointment [facility], Bone Density - [facility] [address] [place] [address] Anat Corley MD [address] [place] [address] [place] [address] [email or web address] documented as of this encounter Visit Diagnoses Diagnosis Encounter for screening for osteoporosis documented in this encounter Care Teams Cell Manager Relationship Specialty Start Date End Date Viktoriya Parker PA [address] [place] [address] PCP - General Unknown Provider Specialty 01/29/1906/28/21 Reid Cummins PA [address] [place] [address] [place] [address] PCP - General 06/29/21 documented as of this encounter Additional Source Comments The information contained in this document represents components of the legal health record. It is not the complete legal health record.[facility]
--- OUTSIDE RECORDS SUMMARY | 2024-12-07 14:52 | XMS_ITS | Encounter Summary ---
Author Organization [facility] Address [address] [facility] [address] [place] [address] Phone Care Team Providers Care Aqueduct And Reservoir Keeper Name Role Phone Viktoriya Parker Primary Care Provider Reid Cummins Primary Care Provider + Encounter Details Date Type Department Care Team (Late Contact Info) Description 06/27/2020 Ancillary Orders Virtual Department [address] [place] [address] Kellie Tefsaye NP [address] [place] [address] [email or web address] Breast screening Social History Tobacco Use Types Packs/Day Years [...] [facility], Bone [facility] [address] [place] [address] Anat Corley MD [address] [place] [address] [email or web address] documented as of this encounter Results * BI MAMMOGRAM SCREENING WITH TOMOSYNTHESIS WITH CAD (BILATERAL) (07/27/2020 10:36 AM EDT) Anatomical Region Laterality Modality Breast Left, Breast Right, Breast Bilateral Bila teral Mammography 07/27/2020 10:4 2 AM EDT Impressions 07/27/2020 10:45 AM EDT BILATERAL BREASTS: Benign, no evidence of malignancy. Normal interval follow-up is recommended in 12 months. Bi-RADS: BI-RADS CATEGORY: 2 - Benign finding. DENSITY: There are scattered fibroglandular densities. Narrative 07/27/2020 10:45 AM EDT STUDY: Bilateral screening mammography with tomosynthesis and CAD TECHNIQUE: Bilateral full-field digital screening mammography is obtained and read in conjunction with computer-aided detection. Tomosynthesis as well as 2-D C view imaging were obtained. COMPARISON: Comparison made to multiple prior, most recent February 01, 2019, and most remote October 20, 2008. BREAST COMPOSITION: There are scattered areas of fibroglandular density RIGHT BREAST: History of previous biopsy. No significant masses, suspicious calcifications or other abnormalities are seen. LEFT BREAST: History of previous biopsy. No significant masses, suspicious calcifications or other abnormalities are seen. Procedure Note Franki Cristobal MD - 07/27/2020 STUDY: Bilateral screening mammography with tomosynthesis and CAD TECHNIQUE: Bilateral full-field digital screening mammography is obtainedand read in conjunction with computer-aided detection. Tomosynthesis aswell as 2-D C view imaging were obtained. COMPARISON: Comparison made to multiple prior, most recent January, and most remote October 20, 2008. BREAST COMPOSITION: There are scattered areas of fibroglandulardensity RIGHT BREAST: History of previous biopsy. No significant masses,suspicious calcifications or other abnormalities are seen. LEFT BREAST: History of previous biopsy. No significant masses,suspicious calcifications or other abnormalities are seen. IMPRESSION: BILATERAL BREASTS: Benign, no evidence of malignancy. Normal intervalfollow-up is recommended in 12 months. Bi-RADS: BI-RADS CATEGORY: 2 - Benign finding. DENSITY: There are scattered fibroglandular densities. Kellie Tesfaye ADMINISTRATIVE REPRESENTATIVE IMG MG EXAMS Final Result documented in this encounter Visit Diagnoses Diagnosis Breast screening Breast screening, unspecified Breast screening Breast screening, unspecified documented in this encounter Care Teams Aqueduct And Reservoir Keeper Relationship Specialty Start Date End Date Viktoriya Parker PA [address] [place] [address] [place] [address] PCP - General Unknown Provider Specialty 01/29/1906/28/21 Reid Cummins PA [address] [facility] [place] [address] PCP - General 06/29/21 documented as of this encounter Additional Source Comments The information contained in this document represents components of the legal health record. It is not the complete legal health record.[facility]
== END 2024-12-07 15:09 | disposition home or self-care (01) ==
LOC: HO.HOP 10:59
PROVIDERS: PCP Family Medicine; Visit Provider Psychiatry & Neurology Psychiatry
DX: F31.81 Bipolar II disorder (principal); F41.1 Generalized anxiety disorder; F90.9 Attention-deficit hyperactivity disorder, unspecified type
CPT/HCPCS: 90833; 99213

== ENCOUNTER → 2024-12-07 10:59 | Outpatient (BNVA) | payer OTHER, SELFPAY | PROVIDERS: PCP Family Medicine; Visit Provider Psychiatry & Neurology Psychiatry | DX: F31.81 Bipolar II disorder (principal); F41.1 Generalized anxiety disorder; F90.9 Attention-deficit hyperactivity disorder, unspecified type | CPT/HCPCS: 99212 ==